=== PATIENT | female | born 1975 | race Caucasian/White ===

== ENCOUNTER 2020-01-21 18:16 | Emergency (ER) | payer MEDICARE, MEDICAID, SELFPAY ==
[2020-01-21 18:17] VITALS: BP 156/89; PULSE 56; RESP 16; TEMP 36.8; O2SAT 96; BMI 38.2
--- NOTE | 2020-01-21 18:39 | W.ED.NAVMDI ---
HPI - Nausea/Vomiting/Diarrhea General: Chief complaint: Nausea/Vomiting/Diarrhea Stated complaint: nausea, vomiting Time Seen by Provider: 01/21/20 18:27 History of Present Illness: HPI Narrative: Brionna is a very nice 44-year-old female who comes in complaining of nausea, vomiting and diarrhea. She states she felt fine yesterday but woke up at 6 AM with symptoms of abdominal cramping. Since she vomited and had diarrhea her cramping is gone. She has no blood in her stools and denies any blood in her emesis. She is had no fevers or chills. Patient states she feels okay now other than just feeling overall tired. Patient does admit she is kept her medicines down and she takes significant medicines including Depakote, tacrolimus, and prednisone. There are others but these she takes for seizure disorders as well as for a kidney transplant. She states her kidney transplant was secondary to uncontrolled high blood pressure which caused renal failure. She states since receiving her kidney she is not had any problems with high blood pressure. She denies any urinary symptoms with this illness. Associated nausea: Yes Associated symtoms: Reports nausea; Denies change in vision, chest pain, diaphoresis, dizziness, dysuria, fatigue, headache(s), malaise, palpitations or syncope Review of Systems Const: Denies: fever(s), chills, body aches, fatigue, malaise or diaphoresis Eyes: Denies: change in vision, blurry vision, blind spots or photophobia ENMT: Denies: throat pain, odynophagia, hoarseness, swelling of lips/tongue, ear or mastoid pain, ear discharge, change in hearing or nasal discharge Card: Denies: chest pain, palpitations, irregular heart rhythm, edema, lightheadedness, syncope, pre-syncope, dyspnea on exertion or orthopnea Resp: Denies: dyspnea, productive cough, non-productive cough, wheezing, hemoptysis or chest congestion GI: Reports: abdominal pain, nausea, vomiting and diarrhea; Denies: hematemesis, coffee ground emesis, heartburn, constipation, GI cramping, hematochezia or melena : Denies: flank pain, dysuria, urinary frequency, urinary urgency or hematuria Musc: Denies: neck pain, back pain, extremity pain, extremity swelling, joint pain, joint swelling, joint redness, joint warmth or joint stiffness Skin/Breast: Denies: rash, pruritus, erythema, skin tenderness or jaundice Neuro: Denies: headache(s), numbness in extremities, weakness in extremities, sensory changes, lack of coordination, difficulty walking, dizziness, vertigo, confusion or Slurred speech present Ayden/Lymph: Denies: easy bruising, easy bleeding, petechiae, purpura or enlarged lymph nodes All/Imm: Denies: urticaria, throat swelling, tongue swelling, facial swelling or acute wheezing PFSH ED PFSH: Medical History Hypertension Hypothyroidism Seizures Surgical History Kidney transplant status Social History Smoking and tobacco status: never smoked Alcohol intake: never Physical Exam Const: COMMON NORMALS: no acute distress, patient oriented x3, no limitations, healthy appearing and well nourished GENERAL APPEARANCE: cooperative, well kempt and well developed HENMT: COMMON NORMALS: normocephalic, atraumatic, external ears normal, EAC's normal and Normal external nose present HEAD & SCALP: normal to inspection, normocephalic and atraumatic FACE & SINUS: normal facial exam and face symmetric NOSE: Normal external nose present and Normal nares present EXTERNAL EAR: Yes external ears normal EXTERNAL AUDITORY CANAL: EAC's normal MOUTH: Normal oral and palatal mucosa present, lip normal and tongue normal Eye: COMMON NORMALS: Equal, round and reactive pupils present and conjunctivae normal GENERAL EYE: appearance normal, both eyes and all related structures ALIGNMENT: Yes alignment normal PERIORBITAL: periorbital findings normal EYELID: eyelids normal CONJUNCTIVA: Yes conjunctivae normal SCLERA: sclerae normal PUPIL: Yes Equal, round and reactive pupils present Neck/C-Spine: COMMON NORMALS: full ROM, no lymphadenopathy, supple, no meningeal signs and no JVD GENERAL: Yes normal visual inspection and Yes trachea midline Chest: COMMONS NORMALS: normal inspection of the chest and normal palpation of entire chest wall Resp: COMMON NORMALS: normal respiratory effort, No retractions and No use of accessory muscles EFFORT & INSPECTION: Yes able to speak in complete sentences and Yes symmetric chest movement AUSCULTATION: no crackles, no rales, no rhonchi and no wheezes Cardio: COMMON NORMALS: no JVD, regular rate, regular rhythm, S1 normal heart sound present and S2 normal heart sound present RATE: regular rate RHYTHM: regular rhythm HEART SOUNDS: S1 normal heart sound present, S2 normal heart sound present, no click, no gallops, no murmurs, no rubs and abnormal split S2 GI: COMMON NORMALS: Soft to palpation and No hepatosplenomegaly present PALPATION: Yes Soft to palpation, No Tenderness to palpation present (GI), No Guarding due to palpation present (GI), No Rigid due to palpation, Yes No hepatosplenomegaly present, No Hernia present, No Palpable mass present and No Pulsatile mass present : COMMON NORMALS: Yes no CVA tenderness BLADDER/KIDNEY EXAM: Yes no CVA tenderness EXTERNAL FEMALE EXAM: No Hernia present Back/Pelvis: COMMON NORMALS: no CVA tenderness, thoracic and lumbar spine normal to inspection, no thoracic nor lumbar tenderness and thoraco-lumbar ROM normal Extremity: COMMON NORMALS: normal to inspection, full ROM, capillary refill normal, no joint enlargement, no clubbing, cyanosis or edema and no calf tenderness Neuro: COMMON NORMALS: patient oriented x3, CN's II-XII intact bilaterally, moves all extremities, no focal motor deficits and no sensory deficits noted MENINGEAL SIGNS: Yes no meningeal signs SPEECH: speech normal Psych: COMMON NORMALS: mental status grossly normal, Normal thought process present, cooperative, normal affect, speech normal and activity/motor behavior normal APPEARANCE: Yes well kempt SPEECH: Yes normal speech THOUGHT PROCESS: Normal thought process present Skin: COMMON NORMALS: no rashes or lesions noted, turgor normal, no jaundice, no petechiae and no mottling GENERAL SKIN EXAM: no rashes or lesions noted and turgor normal Course Vital Signs: Vital signs: Vital Signs Temperature 98.3 F 01/21/20 18:17 Pulse Rate 56 L 01/21/20 18:17 Respiratory Rate 17 01/21/20 19:35 Blood Pressure 156/89 01/21/20 18:17 Pulse Oximetry 98 01/21/20 19:35 MDM - Nausea/Vomiting/Diarrhea MDM Narrative: Medical decision making narrative: Brionna is feeling much better after IV fluids and nausea medicine. She started to complain of some intermittent cramping abdominal pain. Because of her mildly increased creatinine I ordered a renal CT scan and it shows mild hydronephrosis of the transplant kidney. Otherwise there is no acute findings. Her abdominal exam is still benign without sign of peritonitis or focal irritation. I did discuss the case in full with Dr. Reich, on-call for the transplant service at the [facility]. Based upon everything he does not believe the patient needs transfer tonight. He would like the patient to go home with a copy of her CT scan as well as the report. This will need to be brought up with her and given to her regular doctor. He also agrees with me that the patient can go home but if her pain worsens or it has not completely resolved in the next 8 to 12 hours she will need to be rechecked. Patient wants to go home but at this time I see no evidence of appendicitis or other acute findings. Dr. Reich agreed no repeat CT scan would be necessary with contrast. The patient has no focal right lower quadrant abdominal pain. We want to avoid any contrast to hurt her transplant kidney. The patient's exam and history not consistent with appendicitis that she is only had cramping abdominal pain here and nothing earlier in the day. It is possible with her immunosuppressive medications though that appendicitis or other type of bowel problem can present atypically and I have informed the patient of this. She understands that she may need to return here if her pain gets worse and if it does not resolve in the next 8 to 10 hours she will need to be rechecked. She has no questions or concerns and she understands these instructions I have given them to her and she agrees to follow-up as directed or return if needed. Lab Data: Labs: Lab Results 01/21/20 01/21/20 01/21/20 Range/Units 19:13 19:25 19:25 WBC 6.3 (4.0-10.0) 10^3/ uL RBC 3.97 L (4.1-5.3) 10^6/u L Hgb 12.7 (11.5-15.3) g/dL Hct 41.1 (37.0-47.0) % MCV 103.5 H (81-99) fL MCH 32.0 (28.0-34.0) pg MCHC 30.9 (30.0-36.0) g/dL RDW 13.2 (12.1-15.1) % Plt Count 168 (130-400) 10^3/c mm MPV 11.4 H (7.4-10.4) fL Neut % (Auto) 64.8 % Lymph % (Auto) 22.5 % [place] % (Auto) 9.1 % Eos % (Auto) 2.1 % Baso % (Auto) 0.5 % Neut # (Auto) 4.1 (1.8-7.7) 10^3/u L Lymph # (Auto) 1.4 (0.8-4.8) 10^3/u L [place] # (Auto) 0.6 (0.2-0.9) 10^3/u L Eos # (Auto) 0.1 (0.0-0.8) 10^3/u L Baso # (Auto) 0.0 (0.0-0.1) 10^3/u L Nucleated RBC % (a uto) 0 % Nucleated RBCs # 0.0 /100WBC Sodium 140 (136-145) mmol/L Potassium 4.5 (3.5-5.1) mmol/L Chloride 106 (98-107) mmol/L Carbon Dioxide 24 (22-29) mmol/L Anion Gap 14.5 (5-19) BUN 30 H (6-20) mg/dL Creatinine 1.5 H (0.5-0.9) mg/dL GFR Calculation 37.4 L (90-130) mL/min Glucose 98 (65-115) mg/dL Calculated Osmolal ity 287 (285-295) mOsm/k g Lactic Acid (0.5-2.2) mmol/L Calcium 9.9 (8.5-10.5) mg/dL Magnesium 1.6 L (1.7-2.3) mg/dL Total Bilirubin 0.2 (0.15-1.2) mg/dL AST 14 (0-32) U/L ALT 15 (0-33) U/L Alkaline Phosphata se 57 (35-105) IU/L Total Protein 6.0 L (6.6-8.7) g/dL Albumin 3.8 (3.5-5.2) g/dL Globulin 2.2 (1.3-4.6) g/dL Lipase 27 (13-60) U/L Urine Color Yellow (Yellow) Urine Appearance Clear (CLEAR) Urine pH 7 (5-7) Ur Specific Gravit y 1.010 (1.005-1.030) Urine Protein Neg (Negative) Urine Glucose (UA) Norm (Normal) Urine Ketones Negative (Negative) Urine Blood Neg (Negative) Urine Nitrate Negative (Negative) Urine Bilirubin Neg (NEGATIVE) Urine Urobilinogen Neg (Negative) mg/dL Ur Leukocyte Clotilde ase Negative (Negative) Urine RBC None (0-2) /hpf Urine WBC 0-4 H (0-5) /hpf Ur Squamous Epith Cells 0-4 H (0-5) Amorphous Sediment 1+ Urine Bacteria Trace (NONE) Valproic Acid 71.2 (50-100) mcg/mL 01/21/20 Range/Units 19:40 WBC (4.0-10.0) 10^3/ uL RBC (4.1-5.3) 10^6/u L Hgb (11.5-15.3) g/dL Hct (37.0-47.0) % MCV (81-99) fL MCH (28.0-34.0) pg MCHC (30.0-36.0) g/dL RDW (12.1-15.1) % Plt Count (130-400) 10^3/c mm MPV (7.4-10.4) fL Neut % (Auto) % Lymph % (Auto) % [place] % (Auto) % Eos % (Auto) % Baso % (Auto) % Neut # (Auto) (1.8-7.7) 10^3/u L Lymph # (Auto) (0.8-4.8) 10^3/u L [place] # (Auto) (0.2-0.9) 10^3/u L Eos # (Auto) (0.0-0.8) 10^3/u L Baso # (Auto) (0.0-0.1) 10^3/u L Nucleated RBC % (a uto) % Nucleated RBCs # /100WBC Sodium (136-145) mmol/L Potassium (3.5-5.1) mmol/L Chloride (98-107) mmol/L Carbon Dioxide (22-29) mmol/L Anion Gap (5-19) BUN (6-20) mg/dL Creatinine (0.5-0.9) mg/dL GFR Calculation (90-130) mL/min Glucose (65-115) mg/dL Calculated Osmolal ity (285-295) mOsm/k g Lactic Acid 1.3 (0.5-2.2) mmol/L Calcium (8.5-10.5) mg/dL Magnesium (1.7-2.3) mg/dL Total Bilirubin (0.15-1.2) mg/dL AST (0-32) U/L ALT (0-33) U/L Alkaline Phosphata se (35-105) IU/L Total Protein (6.6-8.7) g/dL Albumin (3.5-5.2) g/dL Globulin (1.3-4.6) g/dL Lipase (13-60) U/L Urine Color (Yellow) Urine Appearance (CLEAR) Urine pH (5-7) Ur Specific Gravit y (1.005-1.030) Urine Protein (Negative) Urine Glucose (UA) (Normal) Urine Ketones (Negative) Urine Blood (Negative) Urine Nitrate (Negative) Urine Bilirubin (NEGATIVE) Urine Urobilinogen (Negative) mg/dL Ur Leukocyte Clotilde ase (Negative) Urine RBC (0-2) /hpf Urine WBC (0-5) /hpf Ur Squamous Epith Cells (0-5) Amorphous Sediment Urine Bacteria (NONE) Valproic Acid (50-100) mcg/mL EKG Data^: EKG 1: Attestation: I personally reviewed and interpreted this EKG as follows: EKG interpretation date: 01/21/20 EKG interpretation time: 19:42 Interpretation: Normal sinus rhythm at 56 beats a minute, left axis deviation, LVH, no other acute ST or T wave changes. Discharge Plan Discharge Patient Disposition: Home, Self-Care Clinical Impression: Nausea, vomiting, and diarrhea, Kidney transplant status, Dehydration Condition: Stable Prescriptions: New Zofran 4 mg tablet 4 mg PO Q6H PRN (Reason: nausea and vomiting) Qty: 20 RF: 0 No Action divalproex [Depakote] 250 mg tablet,delayed release (DR/EC) 750 mg PO BID RF: 0 prednisone 5 mg tablet 5 mg PO ONCE RF: 0 sodium bicarbonate 650 mg tablet 650 mg PO BID RF: 0 levothyroxine 75 mcg capsule 75 mcg PO ONCE RF: 0 mycophenolate sodium 360 mg tablet,delayed release (DR/EC) 720 mg PO BID RF: 0 tacrolimus 1 mg tablet extended release 24 hr 1 mg PO BID RF: 0 calcitriol 0.25 mcg capsule See Rx Instructions .ROUTE .COMPLEX RF: 0 Discharge Orders: Discharge Order (Routine); Ordered 01/21/20 Ordered By: Velvet Marie Referrals: Velvet Marie [Emergency Provider] - (Return to the ER for any worsening of your pain or if your pain does not resolve in the next 8 to 10 hours.) Discharge Diet: Advance as tolerated Discharge Activity: Increase activity as tolerated Patient Instructions: Gastroenteritis (ED), Acute Nausea and Vomiting (ED), Abdominal Pain (ED) Activity Restrictions/Additional Instructions: Please return to the ER immediately for any of the signs or symptoms listed on your discharge instruction sheets, worsening/changing of your symptoms, you are not getting better as quickly as expected, or for ANY other cause or concerns. Return to the ER if your pain worsens in any way, return to ER if your pain is not completely resolved in the next 8 to 10 hours. Be certain to call your transplant service and tell them about your visit to the ER and share with him the report on your CT scan as well as your kidney function. Coding Level of Care Code ED Java Development Team Lead for Austen Osman Exam Comprehensive
[2020-01-21] MEDS: ondansetron 2 mg/ML SDV 2 mL 4 MG IVP ×2 (19:28→19:35)
[2020-01-21] MEDS: sodium chloride 0.9% 1,000 ML 999 ML IV (19:29)
[2020-01-21 19:30] LABS: Basophils % 0.5 %; Eosinophils # 0.1 10^3/uL (0.0-0.8); Eosinophils % 2.1 %; Hematocrit 41.1 % (37.0-47.0); Hemoglobin 12.7 g/dL (11.5-15.3); Lymphocytes # 1.4 10^3/uL (0.8-4.8); Lymphocytes % 22.5 %; Mean Corpuscular HGB Conc 30.9 g/dL (30.0-36.0); Mean Corpuscular Volume 103.5 fL (81-99); Mean Platelet Volume 11.4 fL (7.4-10.4); Monocytes # 0.6 10^3/uL (0.2-0.9); Monocytes % 9.1 %; Neutrophils # 4.1 10^3/uL (1.8-7.7); Neutrophils % 64.8 %; Nucleated Red Blood Cells % 0 %; Platelet Count 168 10^3/cmm (130-400); Red Blood Count 3.97 10^6/uL (4.1-5.3); Red Cell Distribution Width 13.2 % (12.1-15.1); White Blood Count 6.3 10^3/uL (4.0-10.0)
[2020-01-21 19:32] LABS: Bilirubin Urine Neg (NEGATIVE); Blood Urine Neg (Negative); Glucose Urine UA Norm (Normal); Ketones Urine Negative (Negative); Leukocyte Esterase Urine Negative (Negative); Nitrate Urine Negative (Negative); Protein Urine Neg (Negative); Urine Appearance Clear (CLEAR); Urine Color Yellow (Yellow); Urobilinogen Urine Neg (Negative); pH Urine 7 (5-7)
[2020-01-21 19:33] LABS: Add Urine Culture? No; Amorphous Sediment Urine 1+; Bacteria Urine TRACE; Squamous Epithelial Cell Urine 0-4 (0-5); WBC Urine 0-4 /hpf (0-5)
[2020-01-21 19:35] VITALS: RESP 17; O2SAT 98
[2020-01-21] MEDS: morphine 4 mg/mL SDV 1 mL IVP (19:35)
[2020-01-21] MEDS: sodium chloride 0.9% 1,000 ML 100 ML IV (19:41)
[2020-01-21 20:02] LABS: Alanine Aminotransferase 15 U/L (0-33); Albumin Level 3.8 g/dL (3.5-5.2); Alkaline Phosphatase 57 IU/L (35-105); Anion Gap 14.5 (5-19); Aspartate Amino Transferase 14 U/L (0-32); Blood Urea Nitrogen 30 mg/dL (6-20); Calcium 9.9 mg/dL (8.5-10.5); Carbon Dioxide 24 mmol/L (22-29); Chloride 106 mmol/L (98-107); Globulin 2.2 g/dL (1.3-4.6); Glomerular Filtration Rate 37.4 mL/min (90-130); Glucose 98 mg/dL (65-115); Lipase 27 U/L (13-60); Magnesium 1.6 mg/dL (1.7-2.3); Osmolality Calculated 287 mOsm/kg (285-295); Potassium 4.5 mmol/L (3.5-5.1); Sodium 140 mmol/L (136-145); Total Bilirubin 0.2 mg/dL (0.15-1.2); Valproic Acid Level 71.2 mcg/mL (50-100)
--- NOTE | 2020-01-21 20:10 | CTR_ITS ---
PROCEDURE INFORMATION: Exam: CT Abdomen And Pelvis Without Contrast Exam date and time: 01/21/2020 8:13 PM Age: 44 years old Clinical indication: Nausea and vomiting and other: Diarrhea; Abdominal pain; Localized; Left lower quadrant (llq); Prior surgery; Surgery type: ; Additional info: Flank/abdominal pain TECHNIQUE: Imaging protocol: Computed tomography of the abdomen and pelvis without contrast. Radiation optimization: All CT scans at this facility use at least one of these dose optimization techniques: automated exposure control; mA and/or kV adjustment per patient size (includes targeted exams where dose is matched to clinical indication); or iterative reconstruction. COMPARISON: No relevant prior studies available. RADIATION DOSE METRICS: Total DLP: 1874.89 mGy-cm FINDINGS: Liver: Normal. No mass. Gallbladder and bile ducts: Normal. No calcified stones. No ductal dilation. Pancreas: Normal. No ductal dilation. Spleen: Normal. No splenomegaly. Adrenals: Normal. No mass. Kidneys and ureters: Severe bilateral renal atrophy. Renal transplant in the left pelvis. Borderline to mild left renal transplant hydronephrosis with no obvious dilated transplant ureter. Stomach and bowel: Unremarkable. No obstruction. No mucosal thickening. Appendix: No evidence of appendicitis. Intraperitoneal space: Unremarkable. No free air. No significant fluid collection. Vasculature: Calcification of the abdominal aorta and/or iliac arteries consistent with atherosclerotic vessel disease. Right common femoral and common femoral vein grafts which were possible used for artificial AV fistula for hemodialysis. Lymph nodes: Unremarkable. No enlarged lymph nodes. Bladder: Unremarkable as visualized. Reproductive: Status post hysterectomy. Bones/joints: Unremarkable. No acute fracture. Soft tissues: Unremarkable. CT/CT kidney stone 87944 IMPRESSION: 1. Renal transplant in the left pelvis. 2. Borderline to mild left renal transplant hydronephrosis with no obvious dilated transplant ureter. Radiation Dose CTDIVOL = (mGy): DLP = 1874.89 (mGy-cm)
[2020-01-21 20:14] LABS: Lactic Sepsis W/Reflex 1.3 mmol/L (0.5-2.2)
[2020-01-21 21:53] VITALS: BP 170/83; PULSE 58; RESP 18; O2SAT 94
== END 2020-01-21 21:55 | disposition home or self-care (01) ==
PROVIDERS: Emergency Provider Emergency Medicine
DX: R11.2 Nausea with vomiting, unspecified (principal); R19.7 Diarrhea, unspecified; E86.0 Dehydration; Z94.0 Kidney transplant status; I10 Essential (primary) hypertension
CPT/HCPCS: 12345; 36415; 74176; 80053; 80164; 81001; 83605; 83690; 83735; 85025; 96361; 96374; 96375; 96376; 99283; J2270; J2405; J7030

== ENCOUNTER 2020-01-29 08:11 | Outpatient (CLI) | payer MEDICARE, MEDICAID, SELFPAY ==
[2020-01-29 09:03] LABS: Basophils % 0.6 %; Eosinophils # 0.2 10^3/uL (0.0-0.8); Eosinophils % 2.1 %; Hematocrit 42.8 % (37.0-47.0); Hemoglobin 13.8 g/dL (11.5-15.3); Lymphocytes # 1.4 10^3/uL (0.8-4.8); Lymphocytes % 20.2 %; Mean Corpuscular HGB Conc 32.2 g/dL (30.0-36.0); Mean Corpuscular Hemoglobin 32.4 pg (28.0-34.0); Mean Corpuscular Volume 100.5 fL (81-99); Mean Platelet Volume 11.3 fL (7.4-10.4); Monocytes # 0.5 10^3/uL (0.2-0.9); Monocytes % 7.5 %; Neutrophils # 4.8 10^3/uL (1.8-7.7); Nucleated Red Blood Cells % 0 %; Platelet Count 189 10^3/cmm (130-400); Red Blood Count 4.26 10^6/uL (4.1-5.3); Red Cell Distribution Width 13.2 % (12.1-15.1); White Blood Count 7.1 10^3/uL (4.0-10.0)
[2020-01-29 09:21] LABS: Alanine Aminotransferase 16 U/L (0-33); Albumin Level 4.5 g/dL (3.5-5.2); Alkaline Phosphatase 70 IU/L (35-105); Anion Gap 18.5 (5-19); Aspartate Amino Transferase 15 U/L (0-32); Blood Urea Nitrogen 37 mg/dL (6-20); Calcium 11.1 mg/dL (8.5-10.5); Carbon Dioxide 24 mmol/L (22-29); Chloride 104 mmol/L (98-107); Globulin 2.5 g/dL (1.3-4.6); Glomerular Filtration Rate 48.4 mL/min (90-130); Glucose 109 mg/dL (65-115); Magnesium 2.1 mg/dL (1.7-2.3); Osmolality Calculated 292 mOsm/kg (285-295); Phosphorus 2.5 mg/dL (2.5-4.5); Potassium 4.5 mmol/L (3.5-5.1); Sodium 142 mmol/L (136-145); Total Bilirubin 0.3 mg/dL (0.15-1.2)
[2020-01-29 09:46] LABS: Calcium 10.9 mg/dL (8.5-10.5); Parathyroid Hormone 291.5 pg/mL (15-65)
== END 2020-01-29 08:12 | disposition home or self-care (01) ==
PROVIDERS: Visit Provider Internal Medicine Nephrology
DX: Z94.0 Kidney transplant status (principal)
CPT/HCPCS: 36415; 80053; 80197; 82310; 83735; 83970; 84100; 85025

== ENCOUNTER 2020-01-30 09:56 | Outpatient (CLI) | payer MEDICARE, MEDICAID, SELFPAY ==
[2020-01-30 10:32] LABS: Urine Creatinine 61 mg/dL (28-217); Urine Protein Random 4 mg/dL
[2020-01-30 10:45] LABS: UPRO/UCREAT Ratio 0.07 mg/mg CR
== END 2020-01-30 09:57 | disposition home or self-care (01) ==
LOC: LAB 10:00
PROVIDERS: Visit Provider Internal Medicine Nephrology
DX: Z94.0 Kidney transplant status (principal)
CPT/HCPCS: 82570; 84156

== ENCOUNTER 2020-03-10 15:32 | Emergency (ER) | payer MEDICARE, MEDICAID, SELFPAY ==
[2020-03-10 15:34] VITALS: BP 145/105; PULSE 73; RESP 18; TEMP 36.7; O2SAT 95; BMI 38.4
--- NOTE | 2020-03-10 16:28 | ECG_ITS ---
[facility] Test Date: 2020-03-10 Pat Name: Brionna Mccallum Department: Room: Gender: Female Questioned Documents Examiner: : 1975 Requested By: Bill Swenson Order Number: [id number] Gamal MD: Mayela Saxena M.D. Measurements Intervals [place] Rate: 79 P: 23 [place]: 171 QRS: -20 QRSD: 102 T: 35 QT: 350 QTc: 403 Interpretive Statements SINUS RHYTHM WITH FREQUENT SUPRAVENTRICULAR PREMATURE COMPLEXES LEFT VENTRICULAR HYPERTROPHY AND ST-T CHANGE POSSIBLE ANTERIOR MYOCARDIAL INFARCTION,PROBABLY OLD Compared to ECG 05/13/2019 17:06:15 Left ventricular hypertrophy now present ST (T wave) deviation now present Myocardial infarct finding now present Sinus bradycardia no longer present Electronically Signed On 03-10-2020 21:20:28 CDT by Mayela Saxena M.D. [email or web address]
[2020-03-10 18:15] LABS: Basophils % 0.5 %; Eosinophils # 0.1 10^3/uL (0.0-0.8); Eosinophils % 1.6 %; Hemoglobin 14.5 g/dL (11.5-15.3); Lymphocytes # 1.9 10^3/uL (0.8-4.8); Lymphocytes % 23.6 %; Mean Corpuscular HGB Conc 32.2 g/dL (30.0-36.0); Mean Corpuscular Hemoglobin 32.2 pg (28.0-34.0); Mean Corpuscular Volume 99.8 fL (81-99); Mean Platelet Volume 10.8 fL (7.4-10.4); Monocytes # 0.7 10^3/uL (0.2-0.9); Monocytes % 8.7 %; Neutrophils # 5.27 10^3/uL (1.8-7.7); Neutrophils % 64.9 %; Nucleated Red Blood Cells % 0 %; Platelet Count 219 10^3/cmm (130-400); Red Blood Count 4.51 10^6/uL (4.1-5.3); Red Cell Distribution Width 13.3 % (12.1-15.1); White Blood Count 8.1 10^3/uL (4.0-10.0)
[2020-03-10 18:25] LABS: Troponin(5th) Baseline 7 ng/L (0-10)
--- NOTE | 2020-03-10 18:34 | XRR_ITS ---
PROCEDURE INFORMATION: Exam: XR Chest, 1 View Exam date and time: 03/10/2020 6:45 PM Age: 44 years old Clinical indication: Type not specified; Patient HX: C/O chest pain x today; Swelling feet and ankles TECHNIQUE: Imaging protocol: XR of the chest Views: Frontal portable upright view of the chest. COMPARISON: CR Chest 1 [place] [id number] 05/13/2019 4:26 PM FINDINGS: Lungs: The lungs are clear bilaterally. The pulmonary vasculature is normal. Pleural space: No pleural effusion. No pneumothorax. Heart/Mediastinum: The heart is normal in size and contour. Mediastinum: Stable. Bones/joints: Degenerative disk disease is present at mid-thoracic spine disk levels with vertebral body marginal osteophytes. XR/XR chest 1V portable [id number] IMPRESSION: No acute cardiopulmonary abnormality identified.
--- NOTE | 2020-03-10 18:47 | W.ED.CHESTPA ---
HPI - Chest Pain General: Chief Complaint: Chest Pain Stated Complaint: swelling Time Seen by Provider: 03/10/20 16:28 Source: patient Mode of arrival: ambulatory Limitations: no limitations History of Present Illness: HPI narrative: Patient is a 44-year-old female who presents to ED today after she was seen at urgent care and referred here for complaints of chest pain. Patient tells me her chest pain began yesterday. She complains of swelling to her bilateral lower extremities. Patient tells me she is supposed to be taking Lasix however has not been taking this medication because she does not like the side effect of urinary frequency. Patient tells me chest pain is not accompanied with shortness of breath or difficulty breathing. She does not complain of orthopnea or PND. She states chest pain is not exertional or positional. She has not been running any fevers or chills. She has no previous cardiac history other than skipped beats . She does not see a cabinet professional. MD complaint: chest pain Onset (ago): hour(s) (started yesterday) Timing of current episode: constant Prior episodes: No Onset: during rest Pain location: substernal Pain radiation: none Severity: mild Relieving factors: nothing Exacerbating factors: nothing Associated symptoms: Deny abdominal pain, dyspnea, fever(s), nausea, palpitations, syncope or vomiting Review of Systems Const: Denies: fever(s) or chills Eyes: Denies: change in vision, blurry vision, floaters or seeing flashes Card: Reports: chest pain and swelling of feet/ankles; Denies: palpitations, irregular heart rhythm, lightheadedness, syncope, pre-syncope, dyspnea on exertion, orthopnea, leg pain with exertion or acrocyanosis Resp: Denies: dyspnea, productive cough, non-productive cough, pain on inspiration or chest congestion GI: Denies: abdominal pain, nausea or vomiting : Denies: flank pain or dysuria Musc: Denies: neck pain, back pain, extremity pain, extremity swelling, joint pain or joint swelling Neuro: Denies: headache(s), numbness in extremities, weakness in extremities or sensory changes [facility] ED PFSH: Medical History (Updated 03/10/20 @ 20:09 by PILI Calderon) Hypertension Hypothyroidism Seizures Surgical History (Updated 01/21/20 @ 21:41 by Velvet Marie) Kidney transplant status Social History Smoking and tobacco status: never smoked Alcohol intake: never Physical Exam Const: COMMON NORMALS: no acute distress, patient oriented x3, no limitations and alert ORIENTATION/CONSCIOUSNESS: Yes oriented to person, Yes oriented to place and Yes oriented to time Resp: COMMON NORMALS: normal respiratory effort and clear to auscultation bilaterally AUSCULTATION: clear to auscultation bilaterally Cardio: COMMON NORMALS: regular rate and regular rhythm RATE: regular rate RHYTHM: regular rhythm GI: COMMON NORMALS: Normal to inspection, nondistended, normoactive bowel sounds present, Soft to palpation, non-tender, No hepatosplenomegaly present and no masses PALPATION: Yes Soft to palpation and Yes No hepatosplenomegaly present Extremity: COMMON NORMALS: normal to inspection NARRATIVE EXTREMITY EXAM: very mild bilateral non-pitting edema GENERAL: Yes normal exam except as noted Neuro: COMMON NORMALS: patient oriented x3 SENSORIUM/ORIENTATION: Yes alert, Yes oriented to person, Yes oriented to place and Yes oriented to time Skin: COMMON NORMALS: no rashes or lesions noted GENERAL SKIN EXAM: no rashes or lesions noted Course Vital Signs: Vital signs: Vital Signs Temperature 98.1 F 03/10/20 15:34 Pulse Rate 60 03/10/20 19:16 Respiratory Rate 18 03/10/20 19:16 Blood Pressure 128/85 03/10/20 19:16 Pulse Oximetry 96 03/10/20 19:16 MDM - Chest Pain MDM Narrative: Medical decision making narrative: Upon reexamination patient no longer having chest pain. Again she is supposed to be taking her Lasix but has not. We will go ahead and start her on a low-dose of Lasix for her swelling. BNP was mildly elevated at 234. CXR not showing fluid overload or cardiomegaly. Patient's initial and repeat troponins are normal. EKG showing sinus rhythm with frequent ectopic beats. She has no ischemic changes noted. We will go ahead and set patient up with cardiology follow-up. Pts BUN/Cr mildly elevated but these seem to be at her baseline. Remainder of labs non-concerning. Return to ED precautions given. Lab Data: Labs: Lab Results 03/10/20 03/10/20 03/10/20 Range/Units 18:01 18:01 18:01 WBC 8.1 (4.0-10.0) 10^3/ uL RBC 4.51 (4.1-5.3) 10^6/u L Hgb 14.5 (11.5-15.3) g/dL Hct 45.0 (37.0-47.0) % MCV 99.8 H (81-99) fL MCH 32.2 (28.0-34.0) pg MCHC 32.2 (30.0-36.0) g/dL RDW 13.3 (12.1-15.1) % Plt Count 219 (130-400) 10^3/c mm MPV 10.8 H (7.4-10.4) fL Neut % (Auto) 64.9 % Lymph % (Auto) 23.6 % [place] % (Auto) 8.7 % Eos % (Auto) 1.6 % Baso % (Auto) 0.5 % Neut # (Auto) 5.27 (1.8-7.7) 10^3/u L Lymph # (Auto) 1.9 (0.8-4.8) 10^3/u L [place] # (Auto) 0.7 (0.2-0.9) 10^3/u L Eos # (Auto) 0.1 (0.0-0.8) 10^3/u L Baso # (Auto) 0.0 (0.0-0.1) 10^3/u L Nucleated RBC % (a uto) 0 % Nucleated RBCs # 0.0 /100WBC Sodium 142 (136-145) mmol/L Potassium 4.5 (3.5-5.1) mmol/L Chloride 104 (98-107) mmol/L Carbon Dioxide 22 (22-29) mmol/L Anion Gap 20.5 H (5-19) BUN 33 H (6-20) mg/dL Creatinine 1.2 H (0.5-0.9) mg/dL GFR Calculation 48.4 L (90-130) mL/min Glucose 85 (65-115) mg/dL Calculated Osmolal ity 291 (285-295) mOsm/k g Calcium 11.5 H (8.5-10.5) mg/dL Total Bilirubin 0.2 (0.15-1.2) mg/dL AST 15 (0-32) U/L ALT 12 (0-33) U/L Alkaline Phosphata se 63 (35-105) IU/L Troponin T Baselin e 7 (0-10) ng/L Troponin T 120 Min nenana (0-10) ng/L Delta Troponin T (0-10) ABS# NT-Pro-B Natriuret Pep (0-125) pg/mL Total Protein 7.2 (6.6-8.7) g/dL Albumin 4.7 (3.5-5.2) g/dL Globulin 2.5 (1.3-4.6) g/dL Ethyl Alcohol < 10 (0-10) mg/dL 03/10/20 03/10/20 Range/Units 18:33 18:33 WBC (4.0-10.0) 10^3/ uL RBC (4.1-5.3) 10^6/u L Hgb (11.5-15.3) g/dL Hct (37.0-47.0) % MCV (81-99) fL MCH (28.0-34.0) pg MCHC (30.0-36.0) g/dL RDW (12.1-15.1) % Plt Count (130-400) 10^3/c mm MPV (7.4-10.4) fL Neut % (Auto) % Lymph % (Auto) % [place] % (Auto) % Eos % (Auto) % Baso % (Auto) % Neut # (Auto) (1.8-7.7) 10^3/u L Lymph # (Auto) (0.8-4.8) 10^3/u L [place] # (Auto) (0.2-0.9) 10^3/u L Eos # (Auto) (0.0-0.8) 10^3/u L Baso # (Auto) (0.0-0.1) 10^3/u L Nucleated RBC % (a uto) % Nucleated RBCs # /100WBC Sodium (136-145) mmol/L Potassium (3.5-5.1) mmol/L Chloride (98-107) mmol/L Carbon Dioxide (22-29) mmol/L Anion Gap (5-19) BUN (6-20) mg/dL Creatinine (0.5-0.9) mg/dL GFR Calculation (90-130) mL/min Glucose (65-115) mg/dL Calculated Osmolal ity (285-295) mOsm/k g Calcium (8.5-10.5) mg/dL Total Bilirubin (0.15-1.2) mg/dL AST (0-32) U/L ALT (0-33) U/L Alkaline Phosphata se (35-105) IU/L Troponin T Baselin e (0-10) ng/L Troponin T 120 Min n[place] 7.04 (0-10) ng/L Delta Troponin T 0.04 (0-10) ABS# NT-Pro-B Natriuret Pep 234 H (0-125) pg/mL Total Protein (6.6-8.7) g/dL Albumin (3.5-5.2) g/dL Globulin (1.3-4.6) g/dL Ethyl Alcohol (0-10) mg/dL Imaging Data^: CXR: My impression: NAD Discharge Plan Discharge Patient Disposition: Home Clinical Impression: Non-cardiac chest pain, Edema of lower extremity Condition: Stable Prescriptions: New Lasix 20 mg tablet 10 mg PO DAILY Qty: 30 RF: 0 No Action divalproex [Depakote] 250 mg tablet,delayed release (DR/EC) 750 mg PO BID RF: 0 prednisone 5 mg tablet 5 mg PO DAILY RF: 0 sodium bicarbonate 650 mg tablet 650 mg PO BID RF: 0 levothyroxine 75 mcg capsule 75 mcg PO ONCE RF: 0 mycophenolate sodium 360 mg tablet,delayed release (DR/EC) 720 mg PO BID RF: 0 tacrolimus 1 mg tablet extended release 24 hr 1 mg PO BID RF: 0 calcitriol 0.25 mcg capsule See Rx Instructions .ROUTE .COMPLEX RF: 0 potassium, sodium phosphates [Phosphorous Supplement] 280-160-250 mg Powder In Packet 1 packet PO BID RF: 0 Discharge Orders: Discharge Order (Routine); Ordered 03/10/20 Ordered By: Yadira Melendez Activity Restrictions/Additional Instructions: Please follow-up with your primary care provider this week or early next week for reevaluation. Case management should be contacting you to set you up with a cardiology follow-up regarding your chest pain and lower extremity swelling. Return to the emergency department for any worsening swelling, chest pains, shortness of breath, difficulty breathing, fevers, any other concerns you may have. Coding Level of Care Code ED Mobile Equipment Mechanic for Chg Fwd Exam Detailed
[2020-03-10 18:50] LABS: Alanine Aminotransferase 12 U/L (0-33); Albumin Level 4.7 g/dL (3.5-5.2); Alkaline Phosphatase 63 IU/L (35-105); Anion Gap 20.5 (5-19); Aspartate Amino Transferase 15 U/L (0-32); Blood Urea Nitrogen 33 mg/dL (6-20); Calcium 11.5 mg/dL (8.5-10.5); Carbon Dioxide 22 mmol/L (22-29); Chloride 104 mmol/L (98-107); Globulin 2.5 g/dL (1.3-4.6); Glomerular Filtration Rate 48.4 mL/min (90-130); Glucose 85 mg/dL (65-115); Osmolality Calculated 291 mOsm/kg (285-295); Potassium 4.5 mmol/L (3.5-5.1); Sodium 142 mmol/L (136-145); Total Bilirubin 0.2 mg/dL (0.15-1.2); Total Protein 7.2 g/dL (6.6-8.7)
[2020-03-10 18:58] LABS: Alcohol Level < 10 mg/dL (0-10)
[2020-03-10 19:16] VITALS: BP 128/85; PULSE 60; RESP 18; O2SAT 96
[2020-03-10 19:18] LABS: Troponin 5 2HR 7.04 ng/L (0-10); Troponin 5 2HR Delta 0.04 ABS# (0-10)
[2020-03-10 19:59] LABS: NT Pro B Type Natriuretic Pept 234 pg/mL (0-125)
[2020-03-10 20:20] VITALS: BP 109/69; PULSE 62; RESP 18; O2SAT 96
--- NOTE | 2020-03-11 08:41 | PC.SOCIAL ---
ED Referral for Cardiology called to [facility] and scheduled for Mar 18, 2020 at 9:15am. Patient contacted by this nurse and wrote down information along with phone number. No other questions voiced. Dr Saxena is the provider.
--- NOTE | 2020-03-20 14:49 | DCPLANNER ---
Patient had a follow up appointment scheduled for 03.18.20 with [facility]. Patient did not attend the appointment.
== END 2020-03-10 20:22 | disposition home or self-care (01) ==
PROVIDERS: Family Medicine; Emergency Provider Physician Assistant
DX: R07.89 Other chest pain (principal); R60.0 Localized edema; I10 Essential (primary) hypertension; Z94.0 Kidney transplant status
CPT/HCPCS: 12345; 36415; 71045; 80053; 80307; 83880; 84484; 85025; 93005; 99283

== ENCOUNTER 2021-03-12 01:29 | Emergency (ER) | payer MEDICARE, MEDICAID, SELFPAY ==
[2021-03-12 02:18] VITALS: BP 126/89; PULSE 95; RESP 16; TEMP 36.7; O2SAT 95; BMI 38.2
[2021-03-12 05:15] VITALS: BP 114/80; PULSE 67; RESP 18; O2SAT 98
[2021-03-12] MEDS: lidocaine 1% INJ 20 mL INJECTION (05:34)
[2021-03-12] MEDS: HYDROcodone-acetaminophen 5-325 mg Tablet 1 TAB PO (05:34)
--- NOTE | 2021-03-12 05:42 | ED_ITS ---
HPI - General Adult General: Chief complaint: General Medical Stated complaint: CYST ON LEG Time Seen by Provider: 03/12/21 05:15 Source: patient Mode of arrival: ambulatory Limitations: no limitations History of Present Illness: HPI narrative: 45-year-old female came in by EMS states she has an abscess to her left inner thigh. She states that ruptured at home and had a large amount of drainage. States she had low-grade fevers. Denies any vomiting or diarrhea. Denies any worsening improving factors. Associated symptoms: Deny chest pain, dyspnea, headache(s), nausea, rash or vomiting Review of Systems Const: Denies: fever(s), chills, body aches or change in appetite Eyes: Denies: blurry vision or eye discomfort ENMT: Denies: throat pain or dental pain Card: Denies: chest pain Resp: Denies: dyspnea GI: Denies: abdominal pain, nausea, vomiting or diarrhea : Denies: dysuria Musc: Denies: neck pain or back pain Skin/Breast: Denies: rash Neuro: Denies: headache(s) Psych: Denies: depression [place]/Lymph: Denies: easy bruising All/Imm: Denies: urticaria PFSH ED PFSH: Medical History Hypertension Hypothyroidism Seizures Surgical History Kidney transplant status Social History Smoking and tobacco status: never smoked Alcohol intake: never Physical Exam Const: COMMON NORMALS: no acute distress, patient oriented x3 and healthy appearing HENMT: COMMON NORMALS: normocephalic and atraumatic HEAD & SCALP: normocephalic and atraumatic Eye: COMMON NORMALS: Equal, round and reactive pupils present and EOMs intact bilaterally PUPIL: Yes Equal, round and reactive pupils present Neck/C-Spine: COMMON NORMALS: full ROM and supple Chest: COMMONS NORMALS: normal inspection of the chest and normal palpation of entire chest wall Resp: COMMON NORMALS: normal respiratory effort, No retractions, No use of accessory muscles and clear to auscultation bilaterally AUSCULTATION: clear to auscultation bilaterally Cardio: COMMON NORMALS: regular rate, regular rhythm and No murmurs present (Cardio) RATE: regular rate RHYTHM: regular rhythm GI: COMMON NORMALS: Normal to inspection, nondistended, normoactive bowel s ounds present, Soft to palpation, non-tender and no masses PALPATION: Yes Soft to palpation Extremity: COMMON NORMALS: normal to inspection and full ROM Neuro: COMMON NORMALS: patient oriented x3, moves all extremities and no focal motor deficits Psych: COMMON NORMALS: mental status grossly normal, Normal thought process present and cooperative THOUGHT PROCESS: Normal thought process present Skin: COMMON NORMALS: no rashes or lesions noted and no wounds NARRATIVE SKIN EXAM: 2 cm abscess to left inner thigh slight surrounding cellulitis. Does have 2 large openings with purulent drainage GENERAL SKIN EXAM: no rashes or lesions noted Course Vital Signs: Vital signs: Vital Signs Temperature 98.1 F 03/12/21 02:18 Pulse Rate 67 03/12/21 05:15 Respiratory Rate 18 03/12/21 05:15 Blood Pressure 114/80 03/12/21 05:15 Pulse Oximetry 98 03/12/21 05:15 MDM - General Adult MDM Narrative: Medical decision making narrative: Patient presents with an abscess. It had ruptured at home does have 2 large holes that are draining. I further incised that. Minimal cellulitis. No signs of sepsis we will place her on Bactrim she is to follow-up PCP and return if worsening. Discharge Plan Discharge Patient Disposition: Home Clinical Impression: Abscess Condition: Stable Prescriptions: New Bactrim DS 800-160 mg tablet 1 tab PO BID 10 Days Qty: 20 RF: 0 hydrocodone-acetaminophen 5-325 mg tablet 1 tab PO Q6H PRN (Reason: pain) Qty: 14 RF: 0 No Action prednisone 5 mg tablet 5 mg PO DAILY RF: 0 sodium bicarbonate 650 mg tablet 650 mg PO BID RF: 0 levothyroxine 75 mcg capsule 75 mcg PO ONCE RF: 0 mycophenolate sodium 360 mg tablet,delayed release (DR/EC) 720 mg PO BID RF: 0 tacrolimus 1 mg tablet extended release 24 hr 1 mg PO BID RF: 0 divalproex [Depakote] 250 mg tablet,delayed release (DR/EC) 750 mg PO BID Qty: 180 RF: 0 calcitriol 0.25 mcg capsule See Rx Instructions .ROUTE .COMPLEX RF: 0 potassium, sodium phosphates [Phosphorous Supplement] 280-160-250 mg Powder In Packet 1 packet PO BID RF: 0 Lasix 20 mg tablet 10 mg PO DAILY Qty: 30 RF: 0 Discharge Orders: Discharge ED (Routine); Ordered 03/12/21 Ordered By: Cary Landeros Referrals: Sari Dover FNP [Primary Care Provider] - Discharge Diet: Advance as tolerated Discharge Activity: Resume usual activity Patient Instructions: Abscess (ED), Opioid Safety Coding Level of Care Code ED Residential Living Assistant for Austen Osman
== END 2021-03-12 06:13 | disposition home or self-care (01) ==
PROVIDERS: Emergency Provider Emergency Medicine; PCP Nurse Practitioner Family
DX: L02.416 Cutaneous abscess of left lower limb (principal); E03.9 Hypothyroidism, unspecified; I10 Essential (primary) hypertension
CPT/HCPCS: 99283

== ENCOUNTER → 2021-07-07 10:56 | Outpatient (BNVA) | payer MEDICARE, MEDICAID, SELFPAY | PROVIDERS: PCP Nurse Practitioner Family; Visit Provider Specialist | DX: G40.909 Epilepsy, unspecified, not intractable, without status epilepticus (principal); G40.309 Generalized idiopathic epilepsy and epileptic syndromes, not intractable, without status epilepticus; I10 Essential (primary) hypertension; Z94.0 Kidney transplant status | CPT/HCPCS: 99204 ==

== ENCOUNTER → 2021-12-29 08:07 | Outpatient (BNVA) | payer MEDICARE, MEDICAID, SELFPAY | PROVIDERS: PCP Nurse Practitioner Family; Visit Provider Family Medicine Adult Medicine | DX: M23.92 Unspecified internal derangement of left knee (principal) | CPT/HCPCS: 73560 ==

== ENCOUNTER → 2022-03-22 13:42 | Outpatient (BNVA) | payer MEDICARE, MEDICAID, SELFPAY | PROVIDERS: PCP Nurse Practitioner Family; Referring Provider Family Medicine Adult Medicine; Visit Provider Specialist | DX: M23.92 Unspecified internal derangement of left knee (principal); M25.562 Pain in left knee; G89.29 Other chronic pain; M89.9 Disorder of bone, unspecified | CPT/HCPCS: 73560; 73565; 99204 ==

== ENCOUNTER 2022-04-01 07:40 | Outpatient (CLI) | payer MEDICARE, MEDICAID, SELFPAY ==
--- NOTE | 2022-04-01 08:00 | MR_ITS ---
WS: [id number] MRI LEFT KNEE NONCONTRAST TECHNIQUE: Axial PD, coronal PD fat sat, coronal PD, sagittal PD, and sagittal PD fat-sat images obta ined. CLINICAL INFORMATION: left knee pain COMPARISON: Radiograph 03/22/22 FINDINGS: Distal quadriceps and patella tendons are intact. Small suprapatellar effusion. Normal ACL and PCL. S mall joint effusion. Prepatellar and infrapatellar soft tissue edema. Chronic thinning of the medial lateral meniscus worse involving the medial joint compartment. No acute appearing meniscal tears. 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 Grade III chondromalacia pat mya. Normal medial and lateral patellar retinaculum. Normal popliteal fossa. Soft tissue edema along the joint line. Normal medial and lateral collateral ligaments. 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 Associated subchondral cystic change with edema. Small amount of edema in the adjacent lateral tibial plateau. Chronic appearing small medullary infarcts involving the distal femur and proximal tibia. MR/MR knee LT wo con* [id number] IMPRESSION: 1. Normal ACL and PCL. 2. 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 Associated edema in the lateral femora l condyle and adjacent lateral tibial plateau. 3. Normal ACL and PCL. 4. 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 5. Suspected small chronic bony infarcts involving the distal femur and proxim al tibia. 6. Small joint effusion. Outbridge grading: grade IV: full-thickness cartilage loss with underlying bone reactive changes
== END 2022-04-01 07:41 | disposition home or self-care (01) ==
LOC: RAD 07:42
PROVIDERS: PCP Nurse Practitioner Family; Visit Provider Specialist
DX: M25.462 Effusion, left knee (principal); M17.12 Unilateral primary osteoarthritis, left knee; R60.0 Localized edema; M22.42 Chondromalacia patellae, left knee
CPT/HCPCS: 73721

== ENCOUNTER 2022-08-22 16:47 | Emergency (ER) | payer MEDICARE, MEDICAID, SELFPAY ==
[2022-08-22 17:21] VITALS: BP 150/89; PULSE 62; RESP 16; TEMP 36.6; O2SAT 99
[2022-08-22 19:07] VITALS: BP 158/80; PULSE 53; RESP 16; O2SAT 100
[2022-08-22] MEDS: FUROsemide 10 mg/mL SDV 10mL 60 MG IVP (19:35)
[2022-08-22 19:42] LABS: Basophils % 0.4 %; Eosinophils # 0.1 10^3/uL (0.0-0.8); Eosinophils % 1.4 %; Hematocrit 39.1 % (37.0-47.0); Hemoglobin 12.4 g/dL (11.5-15.3); Lymphocytes % 27.1 %; Mean Corpuscular HGB Conc 31.7 g/dL (30.0-36.0); Mean Corpuscular Hemoglobin 33.8 pg (28.0-34.0); Mean Corpuscular Volume 106.5 fl (81-99); Mean Platelet Volume 11.5 fL (7.4-10.4); Monocytes # 0.8 10^3/uL (0.2-0.9); Monocytes % 11.3 %; Neutrophils # 4.23 10^3/uL (1.8-7.7); Neutrophils % 58.3 %; Nucleated Red Blood Cells % 0.3 %; Platelet Count 167 10^3/cmm (130-400); Red Blood Count 3.67 10^6/uL (4.1-5.3); Red Cell Distribution Width 13.8 % (12.1-15.1); White Blood Count 7.3 10^3/uL (4.0-10.0)
[2022-08-22 19:45] LABS: Add Urine Microscopic? NO; Charge for UA Resulting for Rev
[2022-08-22 19:54] LABS: Bilirubin Urine Neg (Negative); Blood Urine Neg (Negative); Glucose Urine UA Norm (Normal); HCG Qualitative Urine. Negative (Negative); Ketones Urine Negative (Negative); Leukocyte Esterase Urine Negative (Negative); Nitrate Urine Negative (Negative); Protein Urine Neg (Negative); Urine Appearance Clear (CLEAR); Urine Color Yellow (Yellow); Urobilinogen Urine Norm (Negative); pH Urine 6 (5-7)
[2022-08-22 20:15] LABS: Alanine Aminotransferase 13 U/L (0-33); Albumin Level 3.6 g/dL (3.5-5.2); Alkaline Phosphatase 68 U/L (35-105); Aspartate Amino Transferase 12 U/L (0-32); Blood Urea Nitrogen 37 mg/dL (6-20); Calcium 10.7 mg/dL (8.5-10.5); Carbon Dioxide 23 mmol/L (22-29); Chloride 104 mmol/L (98-107); Globulin 2.7 g/dL (1.3-4.6); Glucose 95 mg/dL (65-115); NT Pro B Type Natriuretic Pept 557 pg/mL (0-125); Osmolality Calculated 286 mOsm/kg (285-295); Sodium 134 mmol/L (136-145); Total Bilirubin 0.2 mg/dL (0.15-1.2); Total Protein 6.3 g/dL (6.6-8.7)
[2022-08-22 21:11] VITALS: BP 117/79; PULSE 52; RESP 16; O2SAT 98
--- NOTE | 2022-08-22 21:24 | ED_ITS ---
HPI - General Adult General: Chief complaint: General Medical Stated complaint: CHANELLE LOWER EXTREMITY SWELLING Time Seen by Provider: 08/22/22 18:24 Source: patient History of Present Illness: 46-year-old female with a history of renal transplant. She states she has missed some doses of her medication. She has noticed some leg swelling. She is mildly short of breath. She is worried about her kidney function. No fever. Onset (ago): day(s) Location: lower extremity Radiation: non-radiation Severity: mild Quality: aching Pain Consistency: constant Associated symptoms: Reports short of breath; Deny chest pain, confusion, cough, dyspnea, fevers/chills, nausea, rash or vomiting Review of Systems Const: Denies: fever(s), chills or body aches Eyes: Denies: change in vision Card: Denies: chest pain Resp: Denies: dyspnea, productive cough, non-productive cough or wheezing GI: Denies: nausea or vomiting : Denies: difficulty voiding Skin/Breast: Denies: rash Neuro: Denies: confusion PFSH ED PFSH: Medical History Falls Hypertension Hypothyroidism Locking of left knee Seizures Surgical History Kidney transplant status Social History Smoking and tobacco status: never smoked Alcohol intake: never Physical Exam Const: COMMON NORMALS: no acute distress GENERAL APPEARANCE: cooperative; not ill appearing and not frail appearing HENMT: COMMON NORMALS: normocephalic, atraumatic and Normal external nose present HEAD & SCALP: normocephalic and atraumatic FACE & SINUS: normal facial exam and face symmetric NOSE: Normal external nose present Eye: COMMON NORMALS: Equal, round and reactive pupils present and EOMs intact bilaterally PUPIL: Yes Equal, round and reactive pupils present Neck/C-Spine: GENERAL: Yes trachea midline Chest: CHEST: Yes Symmetrical chest wall rise Resp: COMMON NORMALS: normal respiratory effort, No retractions, No use of accessory muscles and clear to auscultation bilaterally AUSCULTATION: clear to auscultation bilaterally Cardio: COMMON NORMALS: regular rate and regular rhythm RATE: regular rate RHYTHM: regular rhythm GI: COMMON NORMALS: Normal to inspection, nondistended, normoactive bowel sounds present Extremity: GENERAL: Yes edema (2+) Neuro: MARYCHUY COMA SCALE: document GCS findings [place] coma scale eye o pening: Spontaneous [place] coma scale verbal response: Orientated [place] coma scale motor response: Obey commands Mary[place]uy coma scale total score: 15 SENSORY EXAM: Yes extremities (intact) Psych: COMMON NORMALS: mental status grossly normal and speech normal SPEECH: Yes normal speech Skin: COMMON NORMALS: no rashes or lesions noted GENERAL SKIN EXAM: no rashes or lesions noted Course Vital Signs: Vital signs: Vital Signs Temperature 97.8 F 08/22/22 17:21 Pulse Rate 52 L 08/22/22 21:11 Respiratory Rate 16 08/22/22 21:11 Blood Pressure 117/79 08/22/22 21:11 Pulse Oximetry 98 08/22/22 21:11 Oxygen Delivery Me thod 08/22/22 17:21 MDM - General Adult Medical Decision Making Patient has no significant trouble breathing, is not hypoxic. She has given lasix in the ER with some diuresis. BNP is not significantly elevated. Her crea tinine is baseline. She is inclined to follow up to continue to check on her kidney function. She'll be placed on four days of diuretic. She knows to return if worsening. Lab Data 08/22/22 19:25 08/22/22 19:25 Laboratory Results WBC 7.3 10^3/uL (4.0-10.0) 08/22/22 19:25 RBC 3.67 10^6/uL (4.1-5.3) L 08/22/22 19:25 Hgb 12.4 g/dL (11.5-15.3) 08/22/22 19:25 Hct 39.1 % (37.0-47.0) 08/22/22 19:25 MCV 106.5 fl (81-99) H 08/22/22 19:25 MCH 33.8 pg (28.0-34.0) 08/22/22 19:25 MCHC 31.7 g/dL (30.0-36.0) 08/22/22 19:25 RDW 13.8 % (12.1-15.1) 08/22/22 19:25 Plt Count 167 10^3/cmm (130-400) 08/22/22 19:25 MPV 11.5 fL (7.4-10.4) H 08/22/22 19:25 Neut % (Auto) 58.3 % 08/22/22 19:25 Lymph % (Auto) 27.1 % 08/22/22 19:25 Drew % (Auto) 11.3 % 08/22/22 19:25 Eos % (Auto) 1.4 % 08/22/22 19:25 Baso % (Auto) 0.4 % 08/22/22 19:25 Neut # (Auto) 4.23 10^3/uL (1.8-7.7) 08/22/22 19:25 Lymph # (Auto) 2.0 10^3/uL (0.8-4.8) 08/22/22 19:25 Drew # (Auto) 0.8 10^3/uL (0.2-0.9) 08/22/22 19:25 Eos # (Auto) 0.1 10^3/uL (0.0-0.8) 08/22/22 19:25 Baso # (Auto) 0.0 10^3/uL (0.0-0.1) 08/22/22 19:25 Nucleated RBC % (auto) 0.3 % 08/22/22:25 Nucleated RBCs # 0.0 /100WBC 08/22/22 19:25 Sodium 134 mmol/L (136-145) L 08/22/22 19:25 Potassium 5.0 mmol/L (3.5-5.1) 08/22/22 19:25 Chloride 104 mmol/L (98-107) 08/22/22 19:25 Carbon Dioxide 23 mmol/L (22-29) 08/22/22 19:25 Anion Gap 12.0 (5-19) 08/22/22 19:25 BUN 37 mg/dL (6-20) H 08/22/22 19:25 Creatinine 1.1 mg/dL (0.5-0.9) H 08/22/22 19:25 GFR Calculation 53.0 mL/min (90-130) L 08/22/22 19:25 Glucose 95 mg/dL (65-115) 08/22/22 19:25 Calculated Osmolality 286 mOsm/kg (285-295) 08/22/22 19:25 Calcium 10.7 mg/dL (8.5-10.5) H 08/22/22 19:25 Total Bilirubin 0.2 mg/dL (0.15-1.2) 08/22/22 19:25 AST 12 U/L (0-32) 08/22/22 19:25 ALT 13 U/L (0-33) 08/22/22 19:25 Alkaline Phosphatase 68 U/L (35-105) 08/22/22 19:25 NT-Pro-B Natriuret Pep 557 pg/mL (0-125) H 08/22/22 19:25 Total Protein 6.3 g/dL (6.6-8.7) L 08/22/22 19:25 Albumin 3.6 g/dL (3.5-5.2) 08/22/22 19:25 Globulin 2.7 g/dL (1.3-4.6) 08/22/22 19:25 HCG, Qual Negative (Negative) 08/22/22 19:34 Urine Color Yellow (Yellow) 08/22/22 19:34 Urine Appearance Clear (CLEAR) 08/22/22 19:34 Urine pH 6 (5-7) 08/22/22 19:34 Ur Specific [place] 1.020 (1.005-1.030) 08/22/22 19:34 Urine Protein Neg (Negative) 08/22/22 19:34 Urine Glucose (UA) Norm (Normal) 08/22/22 19:34 Urine Ketones Negative (Negative) 08/22/22 19:34 Urine Blood Neg (Negative) 08/22/22 19:34 Urine Nitrate Negative (Negative) 08/22/22 19:34 Urine Bilirubin Neg (Negative) 08/22/22 19:34 Urine Urobilinogen Norm mg/dL (Negative) 08/22/22 19:34 Ur Leukocyte Esterase Negative (Negative) 08/22/22 19:34 Valproic Acid 46.8 ug/mL (50-100) L 08/22/22 19:25 Discharge Plan Discharge Patient Disposition: Home Clinical Impression: Kidney transplant status, Bilateral edema of lower extremity Condition: Stable Prescriptions: New Lasix 40 mg tablet 40 mg PO DAILY Qty: 4 0RF No Action prednisone 5 mg tablet 5 mg PO DAILY sodium bicarbonate 650 mg tablet 650 mg PO BID mycophenolate sodium 360 mg tablet,delayed release (DR/EC) 720 mg PO BID tacrolimus 1 mg tablet extended release 24 hr 1 mg PO BID divalproex 250 mg tablet,delayed release (DR/EC) See Rx Instructions .ROUTE .COMPLEX Qty: 540 3RF Dose Instruction: TAKE 3 TABLETS BY MOUTH TWICE A DAY Rx Instructions: TAKE 3 TABLETS BY MOUTH TWICE A DAY Lasix 20 mg tablet 10 mg PO DAILY Qty: 30 0RF Discharge Orders: Discharge ED (Routine); Ordered 08/22/22 Ordered By: Neeraj Mendoza Referrals: Sari Dover, WHOLESALE LOAN PROCESSOR [Primary Care Provider] - 4-7 days Patient Instructions: Leg Edema (ED) Activity Restrictions/Additional Instructions: Elevate your legs. Increase your Lasix to 40 mg daily for the next 4 days as instructed. Then back to your normal dose. Compression stockings may help as well. Follow-up with your doctor this week. Coding Level of Care Code ED Machine Tracer for Austen Fwmacarena Exam Comprehensive
[2022-08-22 23:09] LABS: Valproic Acid Level 46.8 ug/mL (50-100)
== END 2022-08-22 21:45 | disposition home or self-care (01) ==
PROVIDERS: Emergency Medicine; Emergency Provider Emergency Medicine; PCP Nurse Practitioner Family
DX: R60.0 Localized edema (principal); Z94.0 Kidney transplant status; I10 Essential (primary) hypertension
CPT/HCPCS: 80053; 80164; 81003; 81025; 83880; 85025; 96374; 99284; J1940

== ENCOUNTER 2024-04-16 21:54 | Inpatient (IN) | payer MEDICARE, MEDICAID, SELFPAY ==
[2024-04-16 21:57] VITALS: BP 131/86; PULSE 98; RESP 18; TEMP 36.7; O2SAT 98; BMI 38.2
[2024-04-16 22:35] LABS: Basophils % 0.4 %; Eosinophils # 0.1 10^3/uL (0.0-0.8); Eosinophils % 0.8 %; Hematocrit 39.8 % (36-47); Lymphocytes # 1.3 10^3/uL (0.8-4.8); Lymphocytes % 12.3 %; Mean Corpuscular HGB Conc 31.2 g/dL (30-55); Mean Corpuscular Hemoglobin 32.3 pg (27-33); Mean Corpuscular Volume 103.6 fl (85-98); Mean Platelet Volume 11.3 fL (7.4-10.4); Monocytes # 1.5 10^3/uL (0.2-0.9); Monocytes % 13.8 %; Neutrophils % 72.4 %; Nucleated Red Blood Cells % 0 %; Platelet Count 224 10^3/cmm (157-399); Red Blood Count 3.84 10^6/uL (3.85-5.65); White Blood Count 10.77 10^3/uL (3.29-11.43)
--- NOTE | 2024-04-16 22:41 | ED_ITS ---
HPI - Extremity Problem 2 General: Chief complaint: Extremity Problem,Nontraumatic Stated complaint: swollen foot Time Seen by Provider: 04/16/24 22:06 History of Present Illness: Patient presents to the ER after noticing that her legs were swollen and red today. It is worse in the left leg. She did not notice it yesterday. Patient also has sores and possible bites on both legs. Patient also states she has not been able to get up all day long. Patient is a kidney transplant patient and is on immunosuppressants. Patient states she had her kidney transplant done at the [facility] in 2016 Related Data Home Medications Medication Instructions Recorded Confirmed mycophenolate sodium 360 mg 720 mg PO BID 08/28/19 03/22/22 tablet,delayed release prednisone 5 mg tablet 5 mg PO DAILY 08/28/19 03/22/22 sodium bicarbonate 650 mg tablet 650 mg PO BID 08/28/19 03/22/22 tacrolimus 1 mg tablet,extended 1 mg PO BID 08/28/19 03/22/22 release 24 hr Previous Rx's Medication Instructions Recorded furosemide 20 mg tablet (Lasix) 10 mg (1/2 x 20 mg) PO DAILY #30 03/10/20 tabs furosemide 40 mg tablet (Lasix) 40 mg PO DAILY #4 tabs 08/22/22 divalproex 250 mg tablet,delayed See Rx Instructions .Route 09/14/23 release .COMPLEX #540 tabs sulfamethoxazole 400 1 tab PO BID 7 days #14 tabs 04/17/24 mg-trimethoprim 80 mg tablet (Bactrim) Allergies Allergy/AdvReac Type Severity Reaction Status Date / Time meperidine [From Demerol] Allergy ALGY-Rash Verified 04/16/24 22:06 phenobarbital Allergy ALGY-Rash Verified 04/16/24 22:06 Review of Systems 2 General: Reports: 10 or more systems reviewed and unremarkable except in HPI and below PFSH ED 2 PFSH: Medical History Falls Locking of left knee Hypothyroidism Seizures Hypertension Surgical History Kidney transplant status Social History Smoking and tobacco/nicotine status: never used tobacco/nicotine Alcohol intake: never Substance/Drug Use: never Physical Exam 2 Const: COMMON NORMALS: no acute distress, average body habitus, patient oriented x3, no limitations, healthy appearing, alert and well nourished HENMT: COMMON NORMALS: normocephalic, atraumatic, hearing grossly normal bilaterally, external ears normal, Normal external nose present and moist oral mucous membranes HEAD & SCALP: normocephalic and atraumatic NOSE: Normal external nose present EXTERNAL EAR: Yes external ears normal Neck/C-Spine: COMMON NORMALS: no JVD Chest: COMMONS NORMALS: normal inspection of the chest and normal palpation of entire chest wall Resp: COMMON NORMALS: normal respiratory effort, No retractions, No use of accessory muscles and clear to auscultation bilaterally AUSCULTATION: clear to auscultation bilaterally Cardio: COMMON NORMALS: no JVD, regular rate, regular rhythm, S1 normal heart sound present, S2 normal heart sound present, No gallops present (Cardio), No clicks present (Cardio), No murmurs present (Cardio) and No rub (Cardio) R ATE: regular rate RHYTHM: regular rhythm HEART SOUNDS: S1 normal heart sound present and S2 normal heart sound present GI: COMMON NORMALS: Normal to inspection, nondistended, normoactive bowel sounds present, Soft to palpation, non-tender, No hepatosplenomegaly present and no masses PALPATION: Yes Soft to palpation and Yes No hepatosplenomegaly present Extremity: NARRATIVE EXTREMITY EXAM: 1+ pitting edema in the right lower extr emity, 2+ pitting edema in the left lower extremity, erythema from the tips of the toes but three quarters the way up the [place] as well as ulcerations and swelling down by the foot. There is also peters that could be consistent with possible bites in this area up to of the mid thigh on the left side. Neuro: COMMON NORMALS: patient oriented x3 SENSORIUM/ORIENTATION: Yes alert Course 2 Vital Signs: Vital signs: Vital Signs Temperature 98.0 F 04/16/24 21:57 Pulse Rate 98 04/16/24 21:57 Respiratory Rate 18 04/16/24 21:57 Blood Pressure 131/86 04/16/24 21:57 Pulse Oximetry 98 04/16/24 21:57 Oxygen Delivery Me thod Room Air 04/16/24 21:57 MDM - Extremity (Nontraumatic) Medical Decision Making Upon talking to nursing patient not able to get up on her left foot but had a very hard time bending her leg straight cathing to get urine. Patient has not been eating or drinking and is therefore weak with worsening kidney function. Lab work was reviewed which revealed renal insufficiency with a BUN/creatinine of 41 and 1.9, procalcitonin 0.79, urinalysis showed UTI. 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 Discussed patient with Dr. Rouse patient is hold the Bactrim Go ahead and put an IV in either arm since her dialysis fistulas are old and she is not using currently and we will admit the patient for inpatient IV antibiotics. Discussed this case with Dr. Cano cracker and cookie machine operator with the transplant team at [facility]. She says this appears more likely than not dehydration along with infection such as urinary tract infection/cellulitis and not necessarily a rejection type reaction. She states she feels comfortable and is keeping her down here for couple days and giving her IV hydration and antibiotics and if she gets better and was just infection if she gets worse then she would be more than happy to see her up there. Medical Records I reviewed the patient's medical records. Lab Data I reviewed the patient's lab results. 04/16/24 22:30 04/16/24 22:30 Laboratory Results WBC 10.77 10^3/uL (3.29-11.43) 04/16/24 22: RBC 3.84 10^6/uL (3.85-5.65) L 04/16/24 22: Hgb 12.40 g/dL (11.27-16.99) 04/16/24 22:30 Hct 39.8 % (36-47) 04/16/24 22:30 MCV 103.6 fl (85-98) H 04/16/24 22: MCH 32.3 pg (27-33) 04/16/24 22: MCHC 31.2 g/dL (30-55) 04/16/24 22: RDW 14.0 % (12.1-15.1) 04/16/24 22: Plt Count 224 10^3/cmm (157-399) 04/16/24 22: MPV 11.3 fL (7.4-10.4) H 04/16/24 22:30 Neut % (Auto) 72.4 % 04/16/24 22:30 Lymph % (Auto) 12.3 % 04/16/24 22:30 Irion % (Auto) 13.8 % 04/16/24 22:30 Eos % (Auto) 0.8 % 04/16/24 22:30 Baso % (Auto) 0.4 % 04/16/24 22:30 Neut # (Auto) 7.80 10^3/uL (1.8-7.7) H 04/16/24 22:30 Lymph # (Auto) 1.3 10^3/uL (0.8-4.8) 04/16/24 22:30 Irion # (Auto) 1.5 10^3/uL (0.2-0.9) H 04/16/24 22:30 Eos # (Auto) 0.1 10^3/uL (0.0-0.8) 04/16/24 22:30 Baso # (Auto) 0.0 10^3/uL (0.0-0.1) 04/16/24 22:30 Nucleated RBC % (auto) 0 % 04/16/24 22: Nucleated RBCs # 0.0 /100WBC 04/16/24 22:30 Sodium 143 mmol/L (136-145) 04/16/24 22:30 Potassium 4.5 mmol/L (3.5-5.1) 04/16/24 22:30 Chloride 105 mmol/L (98-107) 04/16/24 22:30 Carbon Dioxide 21 mmol/L (22-29) L 04/16/24 22:30 Anion Gap 21.5 (5-19) H 04/16/24 22:30 BUN 41 mg/dL (6-20) H 04/16/24 22:30 Creatinine 1.9 mg/dL (0.5-0.9) H 04/16/24 22:30 GFR Calculation 28.0 mL/min (90-130) L 04/16/24 22:30 Glucose 91 mg/dL (65-115) 04/16/24 22:30 Calculated Osmolality 306 mOsm/kg (285-295) H 04/16/24 22:30 Lactic Acid 1.4 mmol/L (0.5-2.2) 04/16/24 22:30 Calcium 10.9 mg/dL (8.5-10.5) H 04/16/24 22:30 Phosphorus 1.9 mg/dL (2.5-4.5) L 04/16/24 22:30 Magnesium 2.2 mg/dL (1.7-2.3) 04/16/24 22: Total Bilirubin 0.8 mg/dL (0.15-1.2) 04/16/24 22:30 AST 24 U/L (0-32) 04/16/24 22: ALT 14 U/L (0-33) 04/16/24 22: Alkaline Phosphatase 66 U/L (35-105) 04/16/24 22: NT-Pro-B Natriuret Pep 410 pg/mL (0-125) H 04/16/24 22:30 Total Protein 6.5 g/dL (6.6-8.7) L 04/16/24 22: Albumin 3.5 g/dL (3.5-5.2) 04/16/24 22:30 Globulin 3.0 g/dL (1.3-4.6) 04/16/24 22:30 Procalcitonin 0.79 ng/mL (0-0.5) H 04/16/24 22:30 Urine Color Dark yellow (Yellow) A 04/16/24 23: Urine Appearance Cloudy (CLEAR) A 04/16/24 23: Urine pH 5.0 (5-7) 04/16/24 23: Ur Specific [place] 1.024 (1.005-1.030) 04/16/24 23: Urine Protein 1+ (Negative) A 04/16/24 23: Urine Glucose (UA) Negative (Normal) 04/16/24 23: Urine Ketones 1+ (Negative) H 04/16/24 23: Urine Blood 3+ (Negative) A 04/16/24 23: Urine Nitrate Positive (Negative) A 04/16/24 23: Urine Bilirubin 1+ (Negative) H 04/16/24 23: Urine Urobilinogen 1.0 mg/dL (Negative) 04/16/24 23: Ur Leukocyte Esterase 2+ (Negative) A 04/16/24 23:29 Urine RBC 0-4 /hpf (0-2) H 04/16/24 23:29 Urine WBC 21-50 /hpf (0-5) H 04/16/24 23:29 Ur Squamous Epith Cells 0-4 /hpf (0-5) H 04/16/24 23:29 Amorphous Sediment Not Reportable 04/16/24 23:29 Urine Bacteria 4+ /hpf (NONE) H 04/16/24 23:29 Valproic Acid 3.5 ug/mL (50-100) L 04/16/24 22:30 All radiology interpretation(s) finalized by discharge Discharge Plan Discharge Patient Disposition: Admitted As Inpatient Admit Provider: Bull Ascencio Clinical Impression: Cellulitis Qualifiers: Site of cellulitis: extremity Site of cellulitis of extremity: lower extremity Laterality: left Qualified Code(s): L03.116 - Cellulitis of left lower limb Chronic renal insufficiency Qualifiers: Chronic kidney disease stage: unspecified stage Qualified Code(s): N18.9 - Chronic kidney disease, unspecified Urinary tract infection Qualifiers: Urinary tract infection type: acute cystitis Hematuria presence: with hematuria Qualified Code(s): N30.01 - Acute cystitis with hematuria Condition: Stable Coding Level of Care Code ED Private Wealth Advisor for Austen Osman
[2024-04-16 22:56] LABS: Lactic Sepsis W/Reflex 1.4 mmol/L (0.5-2.2); Valproic Acid Level 3.5 ug/mL (50-100)
[2024-04-16 23:27] LABS: Alanine Aminotransferase 14 U/L (0-33); Albumin Level 3.5 g/dL (3.5-5.2); Alkaline Phosphatase 66 U/L (35-105); Anion Gap 21.5 (5-19); Aspartate Amino Transferase 24 U/L (0-32); Blood Urea Nitrogen 41 mg/dL (6-20); Calcium 10.9 mg/dL (8.5-10.5); Carbon Dioxide 21 mmol/L (22-29); Chloride 105 mmol/L (98-107); Creatinine Clr Calc Pharmacy 42.4611; Glucose 91 mg/dL (65-115); Magnesium 2.2 mg/dL (1.7-2.3); NT Pro B Type Natriuretic Pept 410 pg/mL (0-125); Osmolality Calculated 306 mOsm/kg (285-295); Phosphorus 1.9 mg/dL (2.5-4.5); Potassium 4.5 mmol/L (3.5-5.1); Procalcitonin 0.79 ng/mL (0-0.5); Sodium 143 mmol/L (136-145); Total Bilirubin 0.8 mg/dL (0.15-1.2); Total Protein 6.5 g/dL (6.6-8.7)
[2024-04-16 23:35] LABS: Charge for UA Resulting for Rev
[2024-04-16 23:36] VITALS: BP 122/80; PULSE 91; RESP 18; O2SAT 100
[2024-04-16 23:38] LABS: Bilirubin Urine 1+ (Negative); Blood Urine 3+ (Negative); Glucose Urine UA Negative (Normal); Ketones Urine 1+ (Negative); Leukocyte Esterase Urine 2+ (Negative); Nitrate Urine Positive (Negative); Protein Urine 1+ (Negative); Specific Gravity, Urine 1.024 (1.005-1.030); Urine Appearance Cloudy (CLEAR)
[2024-04-16 23:56] LABS: Bacteria Urine 4+ /hpf; RBC Urine 0-4 /hpf (0-2); Squamous Epithelial Cell Urine 0-4 /hpf (0-5); UA Manual Slide Review YES; Urine Color Dark Yellow (Yellow); WBC Urine 21-50 /hpf (0-5)
[2024-04-16 23:57] LABS: Add Urine Culture? Yes
[2024-04-17] VITALS (13 sets, daily range): BP systolic 93–128; BP diastolic 58–76; PULSE 48–104; RESP 16–19; TEMP 36.7–37.3; O2SAT 92–98; BMI 31.4
--- NOTE | 2024-04-17 00:54 | CTR_ITS ---
PROCEDURE INFORMATION: Exam: CT Left Lower Extremity, Leg Exam date and time: 04/17/2024 1:21 AM Age: 48 years old Clinical indication: Pain; Foot and lower leg; Left; Additional info: Swelling, pain TECHNIQUE: Imaging protocol: CT of the left lower extremity without contrast was performed. Exam focused on the lower leg. Radiation optimization: All CT scans at this facility use at least one of these dose optimization techniques: automated exposure control; mA and/or kV adjustment per patient size (includes targeted exams where dose is matched to clinical indication); or iterative reconstruction. COMPARISON: CT foot LT wo con* [id number] 04/17/2024 1:21 AM RADIATION DOSE METRICS: Total DLP (mGy-cm): 204.54 FINDINGS: Bones/joints: There is fatty atrophy of skeletal muscle. No bony destructive change. There is a old unhealed fracture of the lateral tibial metaphysis. No significant arthropathy. Soft tissues: Subcutaneous calcifications suggest chronic venous stasis. There is mild anterior soft tissue swelling over the ankle and forefoot. No discrete fluid collection. No soft tissue gas. CT/CT lower leg LT wo con* [id number] IMPRESSION: There is soft tissue swelling over the anterior aspect of the ankle and forefoot without soft tissue gas or radiopaque foreign body. No destructive bony lesions or acute fracture.
--- NOTE | 2024-04-17 00:54 | CT_ITS ---
WS: [id number] Noncontrast CT LEFT foot TECHNIQUE: Noncontrast CT LEFT foot with coronal and sagittal reformatted images. CLINICAL INFORMATION: swelling, pain COMPARISON: None. DLP: 647.[address] scans at [facility] use at least one of these dose optimization techniques: automated e xposure control; mA and/or kV adjustment per patient size (includes targeted exams where dose is matc hed to clinical indication); or iterative reconstruction. FINDINGS: Osteopenia. No acute fractures. Soft tissue edema dorsal foot. No evidence of drainable abscess or fl uid collection. Plantar and Achilles calcaneal spurring. Normal ankle mortise with mild degenerative changes. Normal tibial plafond. Normal cuboid. Cuneiforms appear normal. No evidence of osteomyelitis . Normal visualized tarsal bones. Normal talonavicular reticulation. Bony ankylosis of the distal tib iofibular articulation. CT/CT foot LT wo con* [id number] IMPRESSION: No acute LEFT foot findings
--- NOTE | 2024-04-17 00:54 | CTR_ITS ---
PROCEDURE INFORMATION: Exam: CT Abdomen And Pelvis Without Contrast Exam date and time: 04/17/2024 1:15 AM Age: 48 years old Clinical indication: Abdominal pain; Additional info: Fever, chills, UTI TECHNIQUE: Imaging protocol: Computed tomography of the abdomen and pelvis without contrast. Radiation optimization: All CT scans at this facility use at least one of these dose optimization techniques: automated exposure control; mA and/or kV adjustment per patient size (includes targeted exams where dose is matched to clinical indication); or iterative reconstruction. COMPARISON: CT kidney stone [id number] 01/21/2020 8:12 PM RADIATION DOSE METRICS: Total DLP (mGy-cm): 941.25 FINDINGS: Lungs: Clear basilar lung parenchyma. Pleural spaces: No pleural fluid. Heart: Normal heart size. Liver: Normal configuration. Homogeneous parenchyma. Gallbladder and biliary ducts: No regional inflammation. No calcified stones. No ductal dilation. Pancreas: Scattered punctate calcifications are noted in the pancreas. No pancreatic edema or visible mass. Spleen: Normal. No splenomegaly. Adrenal glands: Normal configuration. Kidneys and ureters: End-stage atrophy of the [place] kidneys. Transplant kidney is situated in the left iliac fossa without evidence of obstruction or peritransplant fluid collection. Stomach and bowel: Unremarkable. No obstruction. No mural thickening. Appendix: Normal appendix is confirmed. Intraperitoneal space: No free air. No significant fluid collection. Vasculature: Mild aortoiliac calcific atherosclerosis without aneurysm. Lymph nodes: No enlarged lymph nodes. Urinary bladder: Unremarkable as visualized. Reproductive: Prior hysterectomy. No evidence of vaginal cuff or adnexal mass. Bones/joints: There is severe arthropathy of the right hip with collapse of the femoral head compatible with complicated avascular necrosis. Left femoral head currently appears normal. No acute fracture or destructive lesion. Soft tissues: There is a partly visualized loop graft in the right proximal thigh. CT/CT abdomen pelvis wo con [id number] IMPRESSION: 1. No acute abnormality of the severely atrophic [place] kidneys or left iliac fossa transplant kidney. In particular, there is no evidence urolithiasis. No peritransplant fluid collection or edema. 2. 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 On today's exam, there is evidence of flattening of the right femoral head with advanced secondary osteoarthritis. Consider MR of the left hip in order to detect AVN in its early and more treatable stage.
--- NOTE | 2024-04-17 01:17 | USR_ITS ---
PROCEDURE INFORMATION: Exam: US Duplex Left Lower Extremity Veins, Limited Exam date and time: 04/17/2024 2:01 AM Age: 48 years old Clinical indication: Edema, localized; Lower extremity, left; Patient HX: No trauma, no history of dvt per patient. ; Additional info: Swelling TECHNIQUE: Imaging protocol: Real-time duplex ultrasound of the left extremity with 2-D lauren scale, color Doppler flow and spectral waveform analysis including responses to compression and other maneuvers (when performed) with image documentation. Limited exam focused on the left lower extremity veins. COMPARISON: CT foot LT wo con* [id number] 04/17/2024 1:21 AM FINDINGS: Left deep veins: Unremarkable. The common femoral, femoral, proximal profunda femoral and popliteal veins are patent without thrombus. Normal Doppler waveforms. Normal compressibility and/or augmentation response. There is occlusive thrombus in the peroneal veins. Superficial veins: Greater saphenous vein at the saphenofemoral junction is patent without thrombus. Soft tissues: Unremarkable. US/CV venous duplex [facility] [id number] IMPRESSION: Noncompressible peroneal veins are compatible with acute deep venous thrombosis. No additional thrombus demonstrated. In particular, no evidence of DVT in the thigh.
--- NOTE | 2024-04-17 01:21 | P.HP_ITS ---
Providers/Chief Complaint 2 Admitting Physician: Bull Ascencio MD Primary Care Provider: Sari Dover Chief Complaint: swollen foot History of Present Illness Brionna Ornelas is a 48 year old female with a past medical history of renal transplant in 2016, [facility], on mycophenolate, and tacrolimus and prednisone, history of seizures, who presents to [facility] due to fatigue, malaise, weakness in both legs, left leg pain. Currently patient is alert to person, to place, not to time she follows commands and is a bit drowsy, but can follow commands. She tells me that she had a renal transplant in 2016, she follows up with the nurse practitioner at [facility] but they typically communicate via phone she tells me, she has not gone to [place] in some period of time, she does remember the last time her tacrolimus levels were checked, or her dose was adjusted. She tells me that she has a history of bilateral AV fistulas, which according to her, are not functioning anymore. She tells me that over the last few days she has had fatigue, malaise, weakness, denies any flank pain, denies any dysuria, denies a history of kidney stones, weakness in bilateral legs, with now developing left leg swelling and pain and tenderness. She tells me that she has an infestation of cockroaches in her home and the cockroaches tend to bite at her feet, she thinks that is why her left leg has becomes quite swollen, erythematous, tender. She denies any falls, no trauma, no injuries. She denies any fevers but does report chills, feels nauseous, no vomiting. She does have severe pain in her left leg. Pain in the left foot, left lower foot. Denies any trauma to her foot, denies any history of diabetes, denies a history of neuropathy. -Reviewed patient's lab creatinine 1.9, BUN 41, anion gap 21.5, source infection UTI, concern for left lower extremity cellulitis, patient is on tacrolimus, prednisone, mycophenolate -Spoke to ER provider, my concerns for her elevated creatinine given that she is a renal transplant patient, discussed my concerns that we should speak to transplant team at [facility], obtain tacrolimus level, to see if patient would be better served at [facility], given that she received her transplant their, her creatinine is elevated at 1.9, he had limited ability to monitor her tacrolimus levels, do not have the expertise of the transplant team -ER provider spoke to Dr. Cano, at [facility], physician believe that patient's current condition is likely from dehydration and underlying infection rather than transplant rejection, recommended for patient to be admitted here at [facility], transfer at this time is not needed, and if patient's condition worsens, certainly patient could be then transferred to [facility] Review of Systems 2 Const: Reports: chills, fatigue and malaise; Denies: fever(s) Card: Denies: chest pain Resp: Denies: dyspnea GI: Reports: nausea; Denies: abdominal pain : Denies: flank pain, difficulty voiding or dysuria Musc: Reports: muscle weakness; Denies: back pain Skin/Breast: Reports: rash, pruritus and erythema Neuro: Reports: weakness in extremities; Denies: headache(s), frequent falls, dizziness or confusion Medications/Allergies Home Medications Medication Instructions Recorded Confirmed Last Taken Type mycophenolate sodium 360 mg 720 mg PO BID 08/28/19 03/22/22 03/10/20 History tablet,delayed release prednisone 5 mg tablet 5 mg PO DAILY 08/28/19 03/22/22 03/10/20 History sodium bicarbonate 650 mg tablet 650 mg PO BID 08/28/19 03/22/22 03/10/20 History tacrolimus 1 mg tablet,extended 1 mg PO BID 08/28/19 03/22/22 03/10/20 History release 24 hr furosemide 20 mg tablet (Lasix) 10 mg (1/2 x 20 mg) PO DAILY #30 03/10/20 03/22/22 Unknown Rx tabs furosemide 40 mg tablet (Lasix) 40 mg PO DAILY #4 tabs 08/22/22 Unknown Rx divalproex 250 mg tablet,delayed See Rx Instructions .Route 09/14/23 Unknown Rx release .COMPLEX #540 tabs sulfamethoxazole 400 1 tab PO BID 7 days #14 tabs 04/17/24 Unknown Rx mg-trimethoprim 80 mg tablet (Bactrim) Allergies Allergy/AdvReac Type Severity Reaction Status Date / Time meperidine [From Demerol] Allergy ALGY-Rash Verified 04/16/24 22:06 phenobarbital Allergy ALGY-Rash Verified 04/16/24 22:06 PFSH Acute 2 PFSH: Medical History Falls Locking of left knee Hypothyroidism Seizures Hypertension Surgical History Kidney transplant status Social History Smoking and tobacco/nicotine status: never used tobacco/nicotine Alcohol intake: never Substance/Drug Use: never Vitals/I&O/Wt Last Vital Signs Temp 98.0 F 04/16/24 21:57 Pulse 98 04/16/24 21:57 Resp 18 04/16/24 21:57 BP 131/86 04/16/24 21:57 Pulse Ox 98 04/16/24 21:57 O2 Del Method Room Air 04/16/24 21:57 Weight last 48 hrs Weight 104.326 kg Physical Exam 2 Const: COMMON NORMALS: no acute distress and patient oriented x3 HENMT: COMMON NORMALS: normocephalic HEAD & SCALP: normocephalic Eye: COMMON NORMALS: Equal, round and reactive pupils present and EOMs intact bilaterally Neck/C-Spine: COMMON NORMALS: no JVD Lymph: LYMPHATIC: no lymphadenopathy noted Resp: COMMON NORMALS: normal respiratory effort, No retractions, No use of accessory muscles and clear to auscultation bilaterally AUSCULTATION: clear to auscultation bilaterally Cardio: COMMON NORMALS: no JVD, regular rate, regular rhythm, S1 normal heart sound present and S2 normal heart sound present RATE: regular rate RHYTHM: regular rhythm HEART SOUNDS: S1 normal heart sound present and S2 normal heart sound present GI: COMMON NORMALS: Normal to inspection, nondistended, normoactive bowel sounds present, Soft to palpation and non-tender Extremity: NARRATIVE EXTREMITY EXAM: Left lower extremity, 1+ pitting edema ? Left lower extremity, forefoot, on dorsal aspect of forefoot, she has 2 superficial open areas, measuring 1 x 1 cm, look like superficial ulcers, nondraining His left lower extremity, foot, erythematous, swelling, does have skin breaks, dorsal aspect, she also has skin breaks in her second digit ? Left lower extremity erythematous, swelling, tenderness, swelling throughout, does have calf tenderness Assessment multiple insect bites throughout left lower extremity, also has insect bites to right lower extremity Neuro: COMMON NORMALS: patient oriented x3, CN's II-XII intact bilaterally and moves all extremities Psych: COMMON NORMALS: mental status grossly normal Data 04/16/24 22:30 04/16/24 22:30 A&P Assessment and plan (1) Acute kidney injury: (2) Urinary tract infection: Qualifiers: Hematuria presence: with hematuria Urinary tract infection type: acute cystitis Qualified Code(s): N30.01 - Acute cystitis with hematuria (3) Kidney transplant status: (4) Cellulitis: Qualifiers: Laterality: left Site of cellulitis: extremity Site of cellulitis of extremity: lower extremity Qualified Code(s): L03.116 - Cellulitis of left lower limb Plan Urinary tract infection ? Follow urine cultures ? Follow blood cultures ? CT abdomen pelvis without contrast ? Continue Zosyn Left lower extremity swelling, concerning for cellulitis ? With pain and tenderness throughout the left lower leg, to the left foot - reported cockroach bites - immunocompromise state ? Plan ? Venous ultrasound for DVT ? Follow cultures as above ? Continue vancomycin exodus continue Zosyn History of renal transplant ? Will need to clarify patient's dosing of tacrolimus, mycophenolate, prednisone as patient is unsure, through patient's pharmacy in the morning ? Tacrolimus level obtained Acute kidney injury # Renal transplant patient # [facility] [place] catheter ? Monitor urine output ? Monitor creatinine History of epilepsy ? Will need to clarify patient's dosing of Depakote Full code ? Heparin for DVT prophylaxis Attestations 2 Medical Necessity Statement*: Patient requires hospitalization, inpatient, greater than 2 midnights for UTI, left lower extremity swelling concerning for cellulitis evaluate for DVT, UTI, no renal transplant patient Diagnoses Acute kidney injury N17.9 Urinary tract infection N30.01 Hematuria presence: with hematuria Urinary tract infection type: acute cystitis Kidney transplant status Z94.0 Cellulitis L03.116 Laterality: left Site of cellulitis: extremity Site of cellulitis of extremity: lower extremity
[2024-04-17] MEDS: morphine 4 mg/mL SDV 1 mL 2 MG IVP ×2 (03:52→07:49)
[2024-04-17] MEDS: sodium chloride 0.9% 1,000 ML 75 ML IV ×2 (03:53→16:46)
[2024-04-17] MEDS: heparin 5,000 unit/mL INJ 1 mL 5000 UNIT SUBCUT (03:53)
[2024-04-17] MEDS: pantoprazole 40 mg SDV IVP (03:53)
[2024-04-17] MEDS: vancomycin 1,250 MG/250 ML PIGGYBACK 175 MG IV (04:06)
--- NOTE | 2024-04-17 04:27 | PC.NURSE ---
Dr. Ascencio gave order via telephone to not give initial bolus for Heparin drip. No thrill or bruit in bilateral fistulas. Patient states they have not been used in several years. Dr. Ascencio gave okay to place IVs in patient's arms.
--- NOTE | 2024-04-17 04:32 | PC.NURSE ---
Addendum entered by Minda Underwood RN 04/17/24 06:00: NephewDusty contacted and asked to bring in patient's home medications from patient's home. Dusty states that he will be bringing them later today. Addendum entered by Minda Undrewood RN 04/17/24 04:44: Patient does not know her home medications. Unable to update med rec at this time. Original Note: Patient states that she has not taken her anti-rejection medication in 2 days due to not being able to walk. Patient told charge nurse that she could still walk yesterday. Patient is able to tell me the year and month and where she is at, but is not able to tell me the exact date. Educated patient on extreme importance of taking anti-rejection medication. Educated that we do not carry this medication and that the best option is for someone to get it from her home and bring it here. Patient states that the [facility] mails the medication to her. Patient states that her nephew can go in through the back door and get it. Patient provided nephew's (Dusty) phone number to me: [phone].
[2024-04-17 05:03] LABS: Erythrocyte Sedimentation Rate 46 mm/hr (0-15)
[2024-04-17 05:05] LABS: Platelet Count 197 10^3/cmm (157-399)
[2024-04-17] MEDS: heparin drip 25,000 UNIT/500 ML PREMIX 24 UNIT IV (05:09)
[2024-04-17 05:29] LABS: C Reactive Protein 276.7 mg/L (0.0-4.9); Cholesterol 148 mg/dL (0-200); HDL Cholesterol 29 mg/dL (60-100); LDL Cholesterol Calculated 83 mg/dL (50-129); LDL HDL Ratio 2.86 RATIO (0.00-3.22); Thyroid Stimulating Hormone 3.21 uIU/mL (0.27-4.20); Triglycerides 178 mg/dL (0-150)
[2024-04-17 05:30] LABS: Estmated Average Glucose 126
[2024-04-17] MEDS: piperacillin-tazobactam 3.375 GM in sodium chloride 0.9% (plus) 50 ML IV (05:30)
[2024-04-17 05:44] LABS: Partial Thromboplastin Time 41.1 SECONDS (23.9-36.7)
[2024-04-17 05:58] LABS: INR 1.22 (0.8-1.2)
--- NOTE | 2024-04-17 06:21 | PC.NURSE ---
Patient states that she lives alone. Patient states she has cockroaches in her home.
--- NOTE | 2024-04-17 07:18 | PC.NURSE ---
Dr. Smith notified of the following: Brionna Ornelas in [address] is asking for something for pain for her left leg. She received PRN IV Morphine at 4 am. She cannot have it again until 8 am.
[2024-04-17] MEDS: predniSONE 5 mg Tablet PO (07:50)
--- NOTE | 2024-04-17 09:52 | W.PM.EVENTAC ---
Event Note Event Note: Patient is stating that she was in her usual state of health until 3 days ago until she started experiencing difficulty walking, normally she is independent, cooks for self, and Zofran for grocery shopping, Now she is having difficulty lifting her legs, she did not think about stroke H&P reviewed, patient examined Patient is lethargic and fatigued Laying supine I do not see any focal deficits but she is struggling to lift her legs off the bed, she is straining a lot to move her right leg Pupils are symmetrical No facial droop Looks dehydrated S1, S2 Hemodynamic stable Currently on room air Acute on chronic kidney disease Likely related to dehydration and use of nephrotoxic agents Avoid diuretics and Bactrim Will check tacrolimus level Lower extremity swelling with weakness Rule out stroke Will request PT She has nonpurulent cellulitis of left extremity New DVT as well Continue heparin for now will need low-dose Eliquis at the time of discharge History of renal transplant Will touch base with the pharmacy for medication reconciliation UTI: Continue antibiotics History of epilepsy continue antiepileptic regimen after verifying the dose
[2024-04-17 11:53] LABS: Partial Thromboplastin Time 135.7 SECONDS (23.9-36.7)
[2024-04-17] MEDS: cefTRIAXone 1,000 mg SDV 1000 MG IVP (12:22)
[2024-04-17] MEDS: HYDROcodone-acetaminophen 5-325 mg Tablet 1 TAB PO ×2 (12:25→16:53)
[2024-04-17] MEDS: levothyroxine 150 mcg Tablet 75 MCG PO (12:26)
[2024-04-17] MEDS: doxycycline 100 mg Tablet PO (16:45)
[2024-04-17] MEDS: divalproex DR 250 mg Tablet PO (16:45)
[2024-04-17] MEDS: sodium bicarbonate 650 mg Tablet PO (16:46)
[2024-04-17 19:14] LABS: Partial Thromboplastin Time 143.6 SECONDS (23.9-36.7)
[2024-04-18] VITALS (11 sets, daily range): BP systolic 94–108; BP diastolic 52–73; PULSE 48–72; RESP 16–18; TEMP 36.5–36.9; O2SAT 91–94
[2024-04-18 02:04] LABS: Bacillus cereus group Not Detected (NOT DETECT); Bacillus subtillis group Not Detected (NOT DETECT); Corynebacterium Not Detected (NOT DETECT); Cutibacterium acnes (P.acnes) Not Detected (NOT DETECT); Enterococcus Not Detected (NOT DETECT); Enterococcus faecalis Not Detected (NOT DETECT); Enterococcus faecium Not Detected (NOT DETECT); Lactobacillus species Not Detected (NOT DETECT); Listeria Not Detected (NOT DETECT); Listeria monocytogenes Not Detected (NOT DETECT); Micrococcus Not Detected (NOT DETECT); Pan Candida Not Detected (NOT DETECT); Pan Gram-Negative Not Detected (NOT DETECT); Staphylococcus epidermidis Not Detected (NOT DETECT); Staphylococcus lugdunensis Not Detected (NOT DETECT); Staphylococcus species Detected (NOT DETECT); Streptococcus agalactiae Not Detected (NOT DETECT); Streptococcus anginosus group Not Detected (NOT DETECT); Streptococcus pneumoniae Not Detected (NOT DETECT); Streptococcus pyogenes Not Detected (NOT DETECT); Streptococcus species Not Detected (NOT DETECT); mecA Not Detected (NOT DETECT); mecC Not Detected (NOT DETECT)
[2024-04-18 02:26] LABS: Basophils % 0.5 %; Hematocrit 35.9 % (36-47); Lymphocytes # 1.1 10^3/uL (0.8-4.8); Lymphocytes % 26.3 %; Mean Corpuscular HGB Conc 30.4 g/dL (30-55); Mean Corpuscular Hemoglobin 32.2 pg (27-33); Mean Corpuscular Volume 105.9 fl (85-98); Mean Platelet Volume 12.3 fL (7.4-10.4); Monocytes # 0.3 10^3/uL (0.2-0.9); Neutrophils # 2.55 10^3/uL (1.8-7.7); Neutrophils % 63.7 %; Nucleated Red Blood Cells % 0 %; Platelet Count 147 10^3/cmm (157-399); Red Blood Count 3.39 10^6/uL (3.85-5.65); Red Cell Distribution Width 13.9 % (12.1-15.1)
[2024-04-18 02:44] LABS: Partial Thromboplastin Time 62.5 SECONDS (23.9-36.7)
[2024-04-18 02:46] LABS: Blood Urea Nitrogen 31 mg/dL (6-20); Calcium 9.5 mg/dL (8.5-10.5); Carbon Dioxide 18 mmol/L (22-29); Chloride 107 mmol/L (98-107); Creatinine Clr Calc Pharmacy 60.6114; Glomerular Filtration Rate 47.6 mL/min (90-130); Glucose 128 mg/dL (65-115); Osmolality Calculated 290 mOsm/kg (285-295); Sodium 136 mmol/L (136-145)
[2024-04-18 02:52] LABS: Anion Gap 15.8 (5-19); Potassium 4.8 mmol/L (3.5-5.1)
[2024-04-18 03:27] LABS: Slide Review Slide Review Perform
[2024-04-18] MEDS: sodium chloride 0.9% 1,000 ML 75 ML IV ×2 (04:48→18:26)
[2024-04-18] MEDS: heparin drip 25,000 UNIT/500 ML PREMIX 14 UNIT IV (04:51)
[2024-04-18] MEDS: pantoprazole 40 mg SDV IVP (04:52)
[2024-04-18] MEDS: levothyroxine 150 mcg Tablet 75 MCG PO (05:00)
[2024-04-18] MEDS: vancomycin 1,250 MG/250 ML PIGGYBACK 166.67 MG IV (07:42)
[2024-04-18] MEDS: sodium bicarbonate 650 mg Tablet PO ×2 (08:05→17:13)
[2024-04-18] MEDS: doxycycline 100 mg Tablet PO ×2 (08:05→17:13)
[2024-04-18] MEDS: predniSONE 5 mg Tablet PO (08:05)
[2024-04-18] MEDS: divalproex DR 250 mg Tablet PO ×2 (08:05→17:13)
[2024-04-18] MEDS: HYDROcodone-acetaminophen 5-325 mg Tablet 1 TAB PO (08:11)
[2024-04-18 08:29] LABS: Partial Thromboplastin Time 72.7 SECONDS (23.9-36.7)
--- NOTE | 2024-04-18 08:50 | PC.CHAP ---
Pastoral Care Encounter/Spiritual Assessment Type of Contact [] Declined envelope adjuster visit [] Patient/Family/Request visit [] Outpatient visit [] Follow-up visit [] Physician referral [] Code/Alert [] Routine visit [] Staff referral [] Actively dying [] Patient sleeping [] Family support [] [] Out of room [] Palliative care [] [x] Receiving care in room [] Pre-surgical visit [] Trauma [] Long length of stay [] ICU visit [] Other: Relational/Emotional Strength [] Patient feels connected with others/family/visitors/staff [] Distress [] Loneliness/isolation [] Abandonment Spirituality of Patient [] Person of Izabela [] Attends Yarsanism of their Izabela [] Believes in Prayer [] Reads Bible or Jewish materials [] There are Spiritual issues to be addressed Restorative Rehab Aide Interventions [] Prayer [] Active listening [] Non-anxious presence [] Spiritual/emotional support [] Crisis/trauma care [] Spiritual counseling [] Bereavement support [] Provided bereavement packet [] Provided Bible/devotional materials [] Provided toy/stuffed animal, coloring book to patient or family member [] Provided Communion [] Anointing/[place] [] Salvation [] Completed spiritual assessment [] Other: Impact on Illness or Injury [] Angry [] Fearful [] Anxious [] Often cries [] Exhaustion [] Unable to work [] Unable to attend mormonism [] Unable to walk/stand [] Unable to read [] Unable to drive [] Unable to eat/drink [] Unable to sleep [] Unable to be with family [] Patient intubated [] Other: Summary Time spent with patient
--- NOTE | 2024-04-18 09:34 | XR_ITS ---
WS: [id number] Examination: XR hip BI 3-4V wo/w pel [id number] Reason for Exam: AVN Date: 04/18/2024 Comparison: None. Findings: There is some flattening of the right femoral head with sclerosis and cyst formation from avascular n ecrosis. There is resultant degenerative changes of the right hip. Acetabular and femoral head osteop hytes are present. There is no dislocation On the left. The bone density is maintained. There is no destruction. There is no fracture or disloca tion. Mild degenerative changes are present. There is no evidence of left-sided avascular necrosis XR/XR hip BI 3-4V wo/w pel [id number] Impression: There is right hip avascular necrosis with resultant degenerative changes.
--- NOTE | 2024-04-18 10:28 | PM.PN ---
Subjective Subjective: Patient is stating that she is struggling to get up having limited range of motion of legs Creatinine improving Hemodynamically stable Vitals/I&O/Wt Last Vital Signs Temp 98.1 F 04/18/24 08:25 Pulse 48 L 04/18/24 08:25 Resp 16 04/18/24 08:25 BP 103/54 04/18/24 08:25 Pulse Ox 92 04/18/24 08:25 O2 Del Method Room Air 04/18/24 08:25 04/17/24 04/18/24 04/18/24 22:59 06:59 14:59 Intake Total 1097.667 / 2611.259 1703.233 / 2600.300 544.833 / 544.833 Output Total 1050 / 1050 150 / 1200 Balance 47.667 / 518.067 882.233 / 1400.300 544.833 / 544.833 Weight last 48 hrs Weight 90.492 kg Weight 85.638 kg Weight 104.326 kg Physical Exam Narrative: Awake and alert No sign of stroke Lethargic and fatigued Signs of dehydration improving Limited range of motion right hip area S1, S2 Currently on room air Hemodynamically stable Left foot cellulitis without any worsening Urinary Catheter Management: Vaca: Cath Placed During This Visit: yes Reason for Continuing Indwelling Catheter: Other Urinary Catheter Date of Insertion: 04/17/24 Urinary Catheter Time of Insertion: 03:33 Data 04/18/24 01:45 04/18/24 01:45 Micro: Microbiology 04/16/24 23:29 Urine Culture - Preliminary Urine,Clean Catch Gram Negative Rods 04/17/24 04:50 Blood Culture - Preliminary Blood NEGATIVE TO DATE 04/16/24 22:30 Blood Culture - Preliminary Blood A&P Assessment and plan (1) Acute kidney injury: (2) Urinary tract infection: Qualifiers: Hematuria presence: with hematuria Urinary tract infection type: acute cystitis Qualified Code(s): N30.01 - Acute cystitis with hematuria (3) Kidney transplant status: (4) Cellulitis: Qualifiers: Laterality: left Site of cellulitis: extremity Site of cellulitis of extremity: lower extremity Qualified Code(s): L03.116 - Cellulitis of left lower limb Plan Urinary tract infection Changed antibiotics Afebrile YOMI: Proved with IV fluid hydration Continue bicarb tablets Nonpurulent cellulitis Antibiotics changed to ceftriaxone and doxycycline Provoked DVT patient most likely will go home on Eliquis Avascular necrosis of hip Orthopedic service consulted Dr. Florez will evaluate Disposition: Home health versus group home as per PT Full code Continue Depakote for seizures Attestations Medical Necessity Statement*: Anticipating discharge in next 24 hours Diagnoses Acute kidney injury N17.9 Urinary tract infection N30.01 Hematuria presence: with hematuria Urinary tract infection type: acute cystitis Kidney transplant status Z94.0 Cellulitis L03.116 Laterality: left Site of cellulitis: extremity Site of cellulitis of extremity: lower extremity
[2024-04-18] MEDS: cefTRIAXone 1,000 mg SDV 1000 MG IVP (12:00)
[2024-04-18 14:55] LABS: Partial Thromboplastin Time 55.5 SECONDS (23.9-36.7)
--- NOTE | 2024-04-18 15:12 | P.CONIM_ITS ---
Providers/Reason For Consult 2 Consulting Physician/Specialty*: Alirio Florez DO/orthopedic surgery Reason for Consult*: Right hip avascular necrosis with degenerative hip disease Attending Physician: Carmen Smith MD Primary Care Provider: Sari Dover History of Present Illness History of Present Illness Brionna Ornelas is a 48 year old female who presented and was admitted to the hospital per the hospitalist team on 04/17/2024. Patient has a complex medical history as stated in primaries HPI of initial H&P note as listed below: past medical history of renal transplant in 2016, [facility], on mycophenolate, and tacrolimus and prednisone, history of seizures, who presents to [facility] due to fatigue, malaise, weakness in both legs, left leg pain Patient was admitted for urinary tract infection left lower extremity swelling concerning for possible cellulitis as well as history of renal transplant and acute kidney injury. During patient's workup a CT scan was performed and patient was found to have right hip avascular necrosis as result the orthopedic surgery team was consulted for evaluation and treatment recommendations. At this point in time on my evaluation and discussion with patient she denies any hip pain and is benign on examination however she does have some limits on range of motion but she states most of her pain is her left lower extremity as well as her right knee and bilateral feet. No fevers or chills at this time. Medications/Allergies Home Medications Medication Instructions Recorded Confirmed Last Taken Type mycophenolate sodium 360 mg 360 mg PO BID 08/28/19 04/17/24 03/10/20 History tablet,delayed release (Myfortic) prednisone 5 mg tablet 5 mg PO DAILY 08/28/19 04/17/24 03/10/20 History sodium bicarbonate 650 mg tablet 650 mg PO BID 08/28/19 04/17/24 03/10/20 History furosemide 40 mg tablet (Lasix) 40 mg PO DAILY #4 tabs 08/22/22 04/17/24 Unknown Rx divalproex 250 mg tablet,delayed See Rx Instructions .Route 09/14/23 04/17/24 Unknown Rx release .COMPLEX #540 tabs sodium di- and 250 tab PO TID 04/17/24 04/17/24 Unknown History monophosphate-potassium phos monobasic 250 mg tablet (Phospha Neutral) sulfamethoxazole 400 1 tab PO BID 7 days #14 tabs 04/17/24 Unknown Rx mg-trimethoprim 80 mg tablet (Bactrim) tacrolimus 1 mg capsule, 1 mg PO Q12H 04/17/24 04/17/24 Unknown History immediate-release (Prograf) Allergies Allergy/AdvReac Type Severity Reaction Status Date / Time meperidine [From Demerol] Allergy ALGY-Rash Verified 04/16/24 22:06 phenobarbital Allergy ALGY-Rash Verified 04/16/24 22:06 Current Medications Generic Name Dose Route Start Last Admin Trade Name Freq PRN Reason Stop Dose Admin Hydrocodone Bitart/Acetaminophen 1 tab 04/17/24 12:01 04/18/24 08:11 Hydrocodone-Acetaminophen 5-325 Mg Tablet PO 1 tab Q4H PRN Administration MODERATE PAIN Ceftriaxone Sodium 1,000 mg 04/17/24 10:00 04/18/24 12:00 Ceftriaxone 1,000 Mg Sdv IVP 1,000 mg Q24H KAM Administration Protocol Divalproex Sodium 250 mg 04/17/24 18:00 04/18/24 08:[address] 250 Mg Tablet PO 250 mg BID KAM Administration Doxycycline Monohydrate 100 mg 04/17/24 18:00 04/18/24 08:05 Doxycycline 100 Mg Tablet PO 100 mg BID KAM Administration Protocol Sodium Chloride 1,000 mls @ 75 mls/hr 04/17/24 02:47 04/18/24 04:48 Sodium Chloride 0.9% IV 75 mls/hr .[id number] KAM Administration Heparin Sodium/Sodium Chloride 25,000 unit in 500 mls @ 0 mls/hr 04/17/24 04:30 04/18/24 15:05 Heparin Drip IV 8.17 unit/kg/hr CONT KAM 14 mls/hr Titration Protocol Per Protocol Vancomycin HCl 1,250 mg in 250 mls @ 166.667 mls/hr 04/18/24 07:45 04/18/24 09:28 Vancocin IV Infused Q24H KAM Infusion Levothyroxine Sodium 75 mcg 04/17/24 10:00 04/18/24 05:00 Levothyroxine 150 Mcg Tablet PO 75 mcg QAM KAM Administration Morphine Sulfate 2 mg 04/17/24 01:30 04/17/24 07:49 Morphine 4 Mg/Ml Sdv 1 Ml IVP 2 mg Q4H PRN Administration SEVERE PAIN Pantoprazole Sodium 40 mg 04/17/24 01:30 04/18/24 04:52 Pantoprazole 40 Mg Sdv IVP 40 mg Q24H KAM Administration Prednisone 5 mg 04/17/24 09:00 04/18/24 08:05 Prednisone 5 Mg Tablet PO 5 mg DAILY KAM Administration Sodium Bicarbonate 650 mg 04/17/24 18:00 04/18/24 08:05 Sodium Bicarbonate 650 Mg Tablet PO 650 mg BID KAM Administration PFSH Acute 2 PFSH: Medical History Falls Locking of left knee Hypothyroidism Seizures Hypertension Surgical History Kidney transplant status Social History Smoking and tobacco/nicotine status: never used tobacco/nicotine Alcohol intake: never Substance/Drug Use: never Vitals/I&O/Wt Last Vital Signs Temp 98 F 04/18/24 11:58 Pulse 62 04/18/24 14:00 Resp 18 04/18/24 11:58 BP 107/73 04/18/24 11:58 Pulse Ox 93 04/18/24 11:58 O2 Del Method Room Air 04/18/24 11:58 04/18/24 04/18/24 04/18/24 06:59 14:59 22:59 Intake Total 1032.233 / 2600.300 1024.833 / 1024.833 88.433 / 1113.266 Output Total 150 / 1200 Balance 882.233 / 4203.712 0360.833 / 1024.833 88.433 / 1113.266 Weight last 48 hrs Weight 199 lb 8 oz Weight 188 lb 12.8 oz Weight 230 lb Physical Exam 2 Narrative: Examination of the right hip. Patient has no tenderness to palpation about the anterior groin of the hip or lateral aspect of hip she is able to tolerate hip flexion internal rotation she does have limited internal and external rotation. She has negative logroll examination she able to perform straight leg raise. She does have some mild tenderness palpation about the right knee with diffuse tenderness to palpation stable with varus valgus stress. Right lower extremity patient is able to wiggle toes plantarflex and dorsiflex ankle sensations intact to light touch distally. Distal pulses palpable Secondary survey examination yields patient has some small black eschars over the dorsum of the foot which she states were from bug bites and subsequent erythema throughout the dorsum of the foot and distal aspect of the lower leg. There is no subcutaneous bullae or emphysema appreciated. No signs of a rapid progressing infection. Patient's compartments are soft and compressible. She is able to plantarflex and dorsiflex ankle as well as wiggle toes and dorsal sensations intact light touch distally. She has slightly tender over the erythematous area of the left lower extremity findings are consistent with cellulitis there is no appreciable palpable fluctuance or abscess is appreciated throughout the foot or left lower extremity. Negative logroll examination left lower extremity rest of the examination to the bilateral upper extremities is unremarkable with no tenderness palpation of bilateral upper extremity joints and can actively these joints with no pain or discomfort. Urinary Catheter Management: Vaca: Cath Placed During This Visit: yes Reason for Continuing Indwelling Catheter: Other Urinary Catheter Date of Insertion: 04/17/24 Urinary Catheter Time of Insertion: 03:33 Data 04/18/24 01:45 04/18/24 01:45 Micro: Microbiology 04/16/24 23:29 Urine Culture - Preliminary Urine,Clean Catch Gram Negative Rods 04/17/24 04:50 Blood Culture - Preliminary Blood NEGATIVE TO DATE 04/16/24 22:30 Blood Culture - Preliminary Blood Xray Ortho: Radiologist's impression: Ordering Provider/Ordering MD: Carmen Smith MD Date of Service: 04/18/24 Procedure(s): XR hip BI 3-4V wo/w pel [id number] Accession Number(s): [id number] Report Number: [id number] WS: [id number] Examination: XR hip BI 3-4V wo/w pel [id number] Reason for Exam: AVN Date: 04/18/2024 Comparison: None. Findings: There is some flattening of the right femoral head with sclerosis and cyst formation from avascular necrosis. There is resultant degenerative changes of the right hip. Acetabular and femoral head osteophytes are present. There is no dislocation On the left. The bone density is maintained. There is no destruction. There is no fracture or dislocation. Mild degenerative changes are present. There is no evidence of left-sided avascular necrosis XR/XR hip BI 3-4V wo/w pel [id number] Impression: There is right hip avascular necrosis with resultant degenerative changes. CT/CT lower leg LT wo con* [id number] IMPRESSION: There is soft tissue swelling over the anterior aspect of the ankle and forefoot without soft tissue gas or radiopaque foreign body. No destructive bony lesions or acute fracture. CT/CT foot LT wo con* [id number] IMPRESSION: No acute LEFT foot findings CT/CT abdomen pelvis wo con [id number] IMPRESSION: 1. No acute abnormality of the severely atrophic [place] kidneys or left iliac fossa transplant kidney. In particular, there is no evidence urolithiasis. No peritransplant fluid collection or edema. 2. 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 On today's exam, there is evidence of flattening of the right femoral head with advanced secondary osteoarthritis. Consider MR of the left hip in order to detect AVN in its early and more treatable stage. A&P Assessment and plan (1) Avascular necrosis of bone of right hip: (2) Cellulitis: Qualifiers: Laterality: left Site of cellulitis: extremity Site of cellulitis of extremity: lower extremity Qualified Code(s): L03.116 - Cellulitis of left lower limb (3) Kidney transplant status: Plan May weight-bear as tolerated to the right lower extremity Imaging reviewed PT/OT Will order right knee x-rays just that she has some tenderness to palpation if these are negative continue with current plan No acute orthopedic surgical intervention required at this time Follow-up in orthopedics within 2 to 4 weeks upon discharge for outpatient workup and follow-up Continue with IV antibiotics for cellulitis left lower extremity per primary Labs reviewed Orthopedic surgery team will sign off at this patient follow peripherally. If there is any question pertaining patient care or change in patient's clinical presentation feel free to contact orthopedics on-call otherwise patient can follow-up with us on an outpatient setting for workup of her right hip AVN. MDM: Patient 48-year-old female presented with a complex past medical history she was found on her workup as she has a renal transplant acute kidney injury, left lower extremity cellulitis as well as findings now of a DVT which she is currently being treated for by the hospitalist with a heparin drip. At this point time on her workup a CT scan identified right hip AVN and as a result orthopedics was asked to evaluate patient. On my examination she does not have much in the way of pain of the right hip and does not complain of pain in the right hip however she does have some limits on her range of motion and on x-rays of it does show right hip degenerative joint disease and AVN changes. At this point in time there is no need for any acute orthopedic surgical intervention required at this time and this can be followed peripherally particularly given that patient is currently has a blood clot as well as left lower extremity cellulitis. At this point time would recommend outpatient follow-up for her right hip AVN in 2 to 4 weeks. She understands and agrees with current plan. All questions answered. Coding Level of Care Code Acute Code for Chg Fwd Diagnoses Avascular necrosis of bone of right hip M87.051 Cellulitis L03.116 Laterality: left Site of cellulitis: extremity Site of cellulitis of extremity: lower extremity Kidney transplant status Z94.0 Time Spent (min) 45
--- NOTE | 2024-04-18 16:46 | XRR_ITS ---
PROCEDURE INFORMATION: Exam: XR Right Knee Exam date and time: 04/18/2024 4:59 PM Age: 48 years old Clinical indication: Difficulty in walking; Additional info: Right knee pain TECHNIQUE: Imaging protocol: Radiologic exam of the right knee. Views: 1 or 2 views. COMPARISON: No relevant prior studies available. FINDINGS: Bones/joints: No acute fractures or subluxations. Mild degenerative changes with joint space narrowing. No knee joint effusion. Soft tissues: Soft tissues are unremarkable. Vasculature: Atherosclerotic calcifications. XR/XR knee RT 1-2V [id number] IMPRESSION: No acute fractures or subluxations.
[2024-04-18 21:42] LABS: Partial Thromboplastin Time 58.2 SECONDS (23.9-36.7)
--- NOTE | 2024-04-18 23:56 | ECG_ITS ---
[facility] Test Date: 2024-04-18 Pat Name: Brionna Ornelas Department: Room: 264 Gender: Female Community Director: : 1975 Requested By: Bull Ascencio Order Number: [id number] Gamal MD: Nils Parra M.D. Measurements Intervals Ferney Rate: 86 P: 151 HI: 189 QRS: -33 QRSD: 126 T: -5 QT: 318 QTc: 382 Interpretive Statements SINUS RHYTHM WITH FREQUENT SUPRAVENTRICULAR PREMATURE COMPLEXES LEFT AXIS DEVIATION [QRS AXIS < -30] RIGHT BUNDLE BRANCH BLOCK [120+ ms QRS DURATION, UPRIGHT V1, 40+ ms S IN I/aVL/V4/V5/V6] POSSIBLE ANTERIOR MYOCARDIAL INFARCTION , PROBABLY OLD [30 ms Q WAVE IN V3/V4, OR R < 0.2 mV IN V4] Compared to ECG 03/10/2020 15:38:24 Left-axis deviation now present Right bundle-branch block now present Left ventricular hypertrophy no longer present ST (T wave) deviation no longer present Myocardial infarct finding still present Electronically Signed On 04-19-2024 14:56:41 CDT by Nils Parra M.D. [id number]
[2024-04-19] VITALS (7 sets, daily range): BP systolic 101–123; BP diastolic 60–75; PULSE 50–99; RESP 16–20; TEMP 36.3–37.1; O2SAT 91–95
--- NOTE | 2024-04-19 | PC.NURSE ---
Dr. Ascencio notified that patient is having intermittent, frequent beats that appear to either be PVCs or a runs of A-fib.. Image of tele strips sent to him via voalte. EKG taken per order and image of it sent to him via voalte.
[2024-04-19 03:19] LABS: Basophils % 0.7 %; Eosinophils # 0.1 10^3/uL (0.0-0.8); Eosinophils % 1.2 %; Hematocrit 34.2 % (36-47); Lymphocytes # 1.5 10^3/uL (0.8-4.8); Lymphocytes % 24.8 %; Mean Corpuscular HGB Conc 29.8 g/dL (30-55); Mean Corpuscular Hemoglobin 32.6 pg (27-33); Mean Corpuscular Volume 109.3 fl (85-98); Mean Platelet Volume 10.8 fL (7.4-10.4); Monocytes # 0.6 10^3/uL (0.2-0.9); Monocytes % 9.3 %; Neutrophils # 3.69 10^3/uL (1.8-7.7); Neutrophils % 62.6 %; Nucleated Red Blood Cells % 0 %; Platelet Count 222 10^3/cmm (157-399); Red Blood Count 3.13 10^6/uL (3.85-5.65); White Blood Count 5.89 10^3/uL (3.29-11.43)
[2024-04-19 03:32] LABS: Partial Thromboplastin Time 64.3 SECONDS (23.9-36.7)
[2024-04-19 03:36] LABS: Anion Gap 14.4 (5-19); Blood Urea Nitrogen 23 mg/dL (6-20); Calcium 8.9 mg/dL (8.5-10.5); Carbon Dioxide 19 mmol/L (22-29); Chloride 113 mmol/L (98-107); Creatinine Clr Calc Pharmacy 74.7966; Glomerular Filtration Rate 58.7 mL/min (90-130); Glucose 107 mg/dL (65-115); Osmolality Calculated 298 mOsm/kg (285-295); Potassium 4.4 mmol/L (3.5-5.1); Sodium 142 mmol/L (136-145)
[2024-04-19] MEDS: levothyroxine 150 mcg Tablet 75 MCG PO (04:46)
--- NOTE | 2024-04-19 06:56 | PC.NURSE ---
Dr. Smith notified that the patient hasn't had her anti-rejection medication for her kidney transplant in a few days.
[2024-04-19] MEDS: doxycycline 100 mg Tablet PO ×2 (09:08→17:55)
[2024-04-19] MEDS: sodium bicarbonate 650 mg Tablet PO ×2 (09:08→17:55)
[2024-04-19] MEDS: predniSONE 5 mg Tablet PO (09:09)
[2024-04-19] MEDS: divalproex DR 250 mg Tablet PO (09:09)
[2024-04-19] MEDS: tacrolimus 0.5 mg Capsule 1 MG PO ×2 (09:10→21:39)
[2024-04-19] MEDS: pantoprazole 40 mg SDV IVP (09:12)
[2024-04-19] MEDS: sodium chloride 0.9% 1,000 ML 75 ML IV (09:19)
[2024-04-19] MEDS: vancomycin 1,250 MG/250 ML PIGGYBACK 167 MG IV (09:24)
--- NOTE | 2024-04-19 09:40 | P.PN_ITS ---
Subjective 2 Subjective: Patient seems very withdrawn Showing signs of depression Endorsing pain on her attempted get out of bed She is agreeable for Vaca catheter mobile today She is also agreeable to go to SNF as short-term rehab Vitals/I&O/Wt Last Vital Signs Temp 98 F 04/19/24 07:12 Pulse 54 L 04/19/24 07:12 Resp 18 04/19/24 07:12 BP 101/65 04/19/24 07:12 Pulse Ox 94 04/19/24 07:12 O2 Del Method Room Air 04/19/24 07:12 04/18/24 04/19/24 04/19/24 22:59 06:59 14:59 Intake Total 1869.233 / 2894.066 86.8 / 2980.866 1240 / 1240 Output Total 1600 / 1600 350 / 1950 Balance 269.233 / 1294.066 -263.2 / 1841.485 0228 / 1240 Weight last 48 hrs Weight 93.531 kg Weight 90.492 kg Physical Exam 2 Narrative: Awake and alert Laying supine Black eschar left foot area with signs of healing I do not see worsening of erythema no active drainage Pleasant cooperative nonfocal neuroexam GCS 15 S1, S2 bradycardia Currently on room air Urinary Catheter Management: Vaca: Cath Placed During This Visit: yes Reason for Continuing Indwelling Catheter: Accurate Measurement of Urinary Output in Critically Ill Patients Urinary Catheter Date of Insertion: 04/17/24 Urinary Catheter Time of Insertion: 03:33 Data 04/19/24 03:09 04/19/24 03:09 Micro: Microbiology 04/16/24 23:29 Urine Culture - Preliminary Urine,Clean Catch Gram Negative Rods 04/17/24 04:50 Blood Culture - Preliminary Blood NEGATIVE TO DATE A&P Assessment and plan (1) Acute kidney injury: (2) Urinary tract infection: Qualifiers: Hematuria presence: with hematuria Urinary tract infection type: acute cystitis Qualified Code(s): N30.01 - Acute cystitis with hematuria (3) Kidney transplant status: (4) Cellulitis: Qualifiers: Laterality: left Site of cellulitis: extremity Site of cellulitis of extremity: lower extremity Qualified Code(s): L03.116 - Cellulitis of left lower limb Plan Nonpurulent cellulitis Antibiotics changed to ceftriaxone and doxycycline Provoked DVT patient Patient has bleeding secondary lifestyle I will switch her heparin drip to Eliquis 10 mg twice daily for 7 days then 5 mg twice daily YOMI: History of renal transplant, I will resume her immunosuppressants today creatinine has improved Continue bicarb tablets Avascular necrosis of hip Patient will need outpatient valuation appreciate orthopedic recommendations Disposition: Patient is asking for short-term rehab placement because she were not able to care for self, she lives alone Full code Continue Depakote for seizures Signs of depression: Will add low-dose escitalopram Attestations 2 Medical Necessity Statement*: Seeking placement Diagnoses Acute kidney injury N17.9 Urinary tract infection N30.01 Hematuria presence: with hematuria Urinary tract infection type: acute cystitis Kidney transplant status Z94.0 Cellulitis L03.116 Laterality: left Site of cellulitis: extremity Site of cellulitis of extremity: lower extremity
--- NOTE | 2024-04-19 10:01 | PC.CHAP ---
Pastoral Care Encounter/Spiritual Assessment Type of Contact [] Declined telephone sales agent visit [] Patient/Family/Request visit [] Outpatient visit [] Follow-up visit [] Physician referral [] Code/Alert [x] Routine visit [] Staff referral [] Actively dying [] Patient sleeping [] Family support [] [] Out of room [] Palliative care [] [] Receiving care in room [] Pre-surgical visit [] Trauma [] Long length of stay [] ICU visit [] Other: Relational/Emotional Strength [x] Patient feels connected with others/family/visitors/staff [] Distress [] Loneliness/isolation [] Abandonment Spirituality of Patient [x] Person of Izabela [] Attends Temple of their Izabela [x] Believes in Prayer [] Reads Bible or Confucianism materials [] There are Spiritual issues to be addressed Industrial Service Technician Interventions [x] Prayer [x] Active listening [] Non-anxious presence [x] Spiritual/emotional support [] Crisis/trauma care [] Spiritual counseling [] Bereavement support [] Provided bereavement packet [] Provided Bible/devotional materials [] Provided toy/stuffed animal, coloring book to patient or family member [] Provided Communion [] Anointing/[place] [] Salvation [x] Completed spiritual assessment [] Other: Impact on Illness or Injury [] Angry [] Fearful [] Anxious [] Often cries [] Exhaustion [] Unable to work [] Unable to attend sabianism [] Unable to walk/stand [] Unable to read [] Unable to drive [] Unable to eat/drink [] Unable to sleep [] Unable to be with family [] Patient intubated [] Other: Summary Time spent with patient 5 min
[2024-04-19 10:22] LABS: Partial Thromboplastin Time 57.8 SECONDS (23.9-36.7)
[2024-04-19] MEDS: escitalopram 10 mg Tablet PO (10:51)
[2024-04-19] MEDS: FUROsemide 10 mg/mL SDV 2mL 20 MG IVP (10:51)
[2024-04-19] MEDS: cefTRIAXone 1,000 mg SDV 1000 MG IVP (12:00)
--- NOTE | 2024-04-19 13:24 | ECG_ITS ---
[facility] Test Date: 2024-04-19 Pat Name: Brionna Ornelas Department: Room: 264 Gender: Female Lab Rep: : [id number] Requested By: Carmen Smith Order Number: [id number] MD: Nils Parra M.D. Measurements Intervals [place] Rate: 78 P: 147 AL: 185 QRS: 214 QRSD: 142 T: 181 QT: 395 QTc: 452 Interpretive Statements SINUS RHYTHM WITH FREQUENT SUPRAVENTRICULAR PREMATURE COMPLEXES ARM LEADS REVERSED [INVERTED P AND QRS IN I] Compared to ECG 04/18/2024 23:56:25 Left-axis deviation no longer present Right bundle-branch block no longer present Myocardial infarct finding no longer present Electronically Signed On 04-19-2024 14:42:16 CDT by Nils Parra M.D. [email or web address] medical groupDreamHostdelaware [facility] hospital.[facility]/store/NU/[id number] f
[2024-04-19] MEDS: divalproex DR 250 mg Tablet 750 MG PO (17:54)
[2024-04-19] MEDS: apixaban 5 mg Tablet 10 MG PO (21:39)
[2024-04-19] MEDS: HYDROcodone-acetaminophen 5-325 mg Tablet 1 TAB PO (21:46)
[2024-04-20] VITALS: BP 134/76; PULSE 56; RESP 16; TEMP 36.6; O2SAT 95
--- NOTE | 2024-04-20 01:54 | PC.NURSE ---
NS and Heparin drip were not running upon my arrival on shift.
[2024-04-20 04:00] VITALS: BP 118/66; PULSE 42; RESP 20; TEMP 36.7; O2SAT 94
[2024-04-20] MEDS: levothyroxine 150 mcg Tablet 75 MCG PO (04:50)
[2024-04-20 05:03] LABS: Basophils % 0.6 %; Eosinophils # 0.1 10^3/uL (0.0-0.8); Eosinophils % 1.6 %; Lymphocytes # 1.8 10^3/uL (0.8-4.8); Lymphocytes % 28.1 %; Mean Corpuscular HGB Conc 31.2 g/dL (30-55); Mean Corpuscular Hemoglobin 32.7 pg (27-33); Mean Corpuscular Volume 104.8 fl (85-98); Mean Platelet Volume 10.7 fL (7.4-10.4); Monocytes # 0.6 10^3/uL (0.2-0.9); Monocytes % 9.8 %; Neutrophils # 3.75 10^3/uL (1.8-7.7); Neutrophils % 58.5 %; Nucleated Red Blood Cells % 0.3 %; Platelet Count 244 10^3/cmm (157-399); Red Blood Count 3.15 10^6/uL (3.85-5.65); Red Cell Distribution Width 14.2 % (12.1-15.1); White Blood Count 6.41 10^3/uL (3.29-11.43)
[2024-04-20 05:21] LABS: Anion Gap 13.9 (5-19); Blood Urea Nitrogen 23 mg/dL (6-20); Calcium 9.4 mg/dL (8.5-10.5); Carbon Dioxide 23 mmol/L (22-29); Chloride 107 mmol/L (98-107); Creatinine Clr Calc Pharmacy 69.3113; Glomerular Filtration Rate 52.6 mL/min (90-130); Glucose 104 mg/dL (65-115); Osmolality Calculated 294 mOsm/kg (285-295); Potassium 3.9 mmol/L (3.5-5.1); Sodium 140 mmol/L (136-145)
[2024-04-20 05:38] LABS: Slide Review Slide Review Perform
[2024-04-20 06:00] VITALS: PULSE 56
[2024-04-20] MEDS: HYDROcodone-acetaminophen 5-325 mg Tablet 1 TAB PO (06:51)
[2024-04-20 07:34] VITALS: BP 104/70; PULSE 71; RESP 17; TEMP 36.4; O2SAT 95
--- NOTE | 2024-04-20 09:02 | PC.SOCIAL ---
IMM Updated Updated pt on IMM. No questions voiced. Provided pt a copy. Initialed, dated, & timed a copy & placed in chart.
[2024-04-20] MEDS: divalproex DR 250 mg Tablet 750 MG PO (09:15)
[2024-04-20] MEDS: escitalopram 10 mg Tablet PO (09:16)
[2024-04-20] MEDS: vancomycin 1,250 MG/250 ML PIGGYBACK 167 MG IV (09:16)
[2024-04-20] MEDS: sodium bicarbonate 650 mg Tablet PO (09:16)
[2024-04-20] MEDS: tacrolimus 0.5 mg Capsule 1 MG PO (09:16)
[2024-04-20] MEDS: doxycycline 100 mg Tablet PO (09:16)
[2024-04-20] MEDS: predniSONE 5 mg Tablet PO (09:16)
[2024-04-20] MEDS: pantoprazole 40 mg SDV IVP (09:16)
[2024-04-20] MEDS: apixaban 5 mg Tablet 10 MG PO (09:22)
[2024-04-20 11:09] VITALS: BP 108/57; PULSE 78; RESP 17; TEMP 36.3; O2SAT 95
[2024-04-20] MEDS: cefTRIAXone 1,000 mg SDV 1000 MG IVP (11:15)
--- NOTE | 2024-04-20 11:29 | P.DS_ITS ---
Discharge Providers Date of Admission: 04/17/24 00:43 Date of Discharge: April 20, 2024 Attending Provider at Admission: Bull Ascencio MD Attending Provider at Discharge: Joselin Delarosa MD Primary Care Provider: Sari Dover Diagnoses at Discharge Discharge Diagnosis (1) Acute kidney injury: Status: Resolved (2) Urinary tract infection: Status: Acute Qualifiers: Hematuria presence: with hematuria Urinary tract infection type: acute cystitis Qualified Code(s): N30.01 - Acute cystitis with hematuria (3) Kidney transplant status: Status: Acute (4) Cellulitis: Status: Acute Qualifiers: Laterality: left Site of cellulitis: extremity Site of cellulitis of extremity: lower extremity Qualified Code(s): L03.116 - Cellulitis of left lower limb Reason for Visit Reason for Visit: swollen foot Hospital Course Hospital Course Patient was admitted for UTI and cellulitis of lower extremity. She was treated for the above and required short-term rehab at time of discharge. She was diagnosed with avascular necrosis of the hip and advised to follow-up outpatient with orthopedics. Because of a provoked DVT she was started on Eliquis. Discharged on cefpodoxime and doxycycline. Initially the plan was to send her on Bactrim however it was switched to cefpodoxime same and doxycycline at discharge. Low-dose citalopram was also added. Physical Exam Narrative: Awake and alert Laying supine Black eschar left foot area with signs of healing I do not see worsening of erythema no active drainage Pleasant cooperative nonfocal neuroexam GCS 15 S1, S2 bradycardia Currently on room air Urinary Catheter Management: Vaca: Cath Placed During This Visit: yes Reason for Continuing Indwelling Catheter: Other Urinary Catheter Date of Insertion: 04/17/24 Urinary Catheter Time of Insertion: 03:33 Discharge Data Studies Completed and Pending Completed Studies During Hospitalization Category Date Time Status CT abdomen pelvis wo con [id number] Stat Cat Scan 04/17/24 00:[address] foot LT wo con* [id number] Routine Cat Scan 04/17/24 00:[address] lower leg LT wo con* [id number] Stat Cat Scan 04/17/24 00:54 Completed XR hip BI 3-4V wo/w pel [id number] Routine Exams 04/18/24 09:34 Completed XR knee RT 1-2V [id number] Routine Exams 04/18/24 16:46 [place] [id number] Stat Ultrasound 04/17/24 01:17 Completed Pending at discharge Category Date Time Status Blood Culture Stat Lab 04/17/24 04:50 Results FK 506 (Tacrolimus) Routine Lab 04/17/24 04:50 Received Vancomycin Trough Routine Lab 04/21/24 06:45 Ordered Radiology Impressions Abdomen/Pelvis CT 04/17/24 00:54 IMPRESSION: 1. No acute abnormality of the severely atrophic [place] kidneys or left iliac fossa transplant kidney. In particular, there is no evidence urolithiasis. No peritransplant fluid collection or edema. 2. 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 On today's exam, there is evidence of flattening of the right femoral head with advanced secondary osteoarthritis. Consider MR of the left hip in order to detect AVN in its early and more treatable stage. Foot CT 04/17/24 00:54 IMPRESSION: No acute LEFT foot findings Lower Extremity CT 04/17/24 00:54 IMPRESSION: There is soft tissue swelling over the anterior aspect of the ankle and forefoot without soft tissue gas or radiopaque foreign body. No destructive bony lesions or acute fracture. Venous Duplex 04/17/24 01:17 IMPRESSION: Noncompressible peroneal veins are compatible with acute deep venous thrombosis. No additional thrombus demonstrated. In particular, no evidence of DVT in the thigh. Hip/Pelvis X-Ray 04/18/24 09:34 Impression: There is right hip avascular necrosis with resultant degenerative changes. Knee X-Ray 04/18/24 16:46 IMPRESSION: No acute fractures or subluxations. Laboratory Results WBC 6.41 10^3/uL (3.29-11.43) 04/20/24 04:08 RBC 3.15 10^6/uL (3.85-5.65) L 04/20/24 04:08 Hgb 10.30 g/dL (11.27-16.99) L 04/20/24 04:08 Hct 33.0 % (36-47) L 04/20/24 04:08 MCV 104.8 fl (85-98) H 04/20/24 04:08 MCH 32.7 pg (27-33) 04/20/24 04:08 MCHC 31.2 g/dL (30-55) 04/20/24 04:08 RDW 14.2 % (12.1-15.1) 04/20/24 04:08 Plt Count 244 10^3/cmm (157-399) 04/20/24 04:08 MPV 10.7 fL (7.4-10.4) H 04/20/24 04:08 Neut % (Auto) 58.5 % 04/20/24 04:08 Lymph % (Auto) 28.1 % 04/20/24 04:08 Cameron % (Auto) 9.8 % 04/20/24 04:08 Eos % (Auto) 1.6 % 04/20/24 04:08 Baso % (Auto) 0.6 % 04/20/24 04:08 Neut # (Auto) 3.75 10^3/uL (1.8-7.7) 04/20/24 04:08 Lymph # (Auto) 1.8 10^3/uL (0.8-4.8) 04/20/24 04:08 Cameron # (Auto) 0.6 10^3/uL (0.2-0.9) 04/20/24 04:08 Eos # (Auto) 0.1 10^3/uL (0.0-0.8) 04/20/24 04:08 Baso # (Auto) 0.0 10^3/uL (0.0-0.1) 04/20/24 04:08 Nucleated RBC % (auto) 0.3 % 04/20/24 04:08 Nucleated RBCs # 0.0 /100WBC 04/20/24 04:08 ESR 46 mm/hr (0-15) H 04/17/24 04:50 PT 15.80 SECONDS (12.1-14.9) H 04/17/24 04:50 PT Cancelled 04/17/24 04:50 INR 1.22 (0.8-1.2) H 04/17/24 04:50 INR Cancelled 04/17/24 04:50 APTT 57.8 SECONDS (23.9-36.7) H 04/19/24 10:00 Sodium 140 mmol/L (136-145) 04/20/24 04:08 Potassium 3.9 mmol/L (3.5-5.1) 04/20/24 04:08 Chloride 107 mmol/L (98-107) 04/20/24 04:08 Carbon Dioxide 23 mmol/L (22-29) 04/20/24 04:08 Anion Gap 13.9 (5-19) 04/20/24 04:08 BUN 23 mg/dL (6-20) H 04/20/24 04:08 Creatinine 1.1 mg/dL (0.5-0.9) H 04/20/24 04:08 GFR Calculation 52.6 mL/min (90-130) L 04/20/24 04:08 Glucose 104 mg/dL (65-115) 04/20/24 04:08 Estimat Average Glucose 126 04/17/24 04:50 Hemoglobin A1c 6.0 % (4.0-6.0) 04/17/24 04:50 Calculated Osmolality 294 mOsm/kg (285-295) 04/20/24 04:08 Lactic Acid 1.4 mmol/L (0.5-2.2) 04/16/24 22:30 Calcium 9.4 mg/dL (8.5-10.5) 04/20/24 04:08 Phosphorus 1.9 mg/dL (2.5-4.5) L 04/16/24 22:30 Magnesium 2.2 mg/dL (1.7-2.3) 04/16/24 22:30 Total Bilirubin 0.8 mg/dL (0.15-1.2) 04/16/24 22:30 AST 24 U/L (0-32) 04/16/24 22:30 ALT 14 U/L (0-33) 04/16/24 22:30 Alkaline Phosphatase 66 U/L (35-105) 04/16/24 22:30 C-Reactive Protein 276.7 mg/L (0.0-4.9) H 04/17/24 04:50 NT-Pro-B Natriuret Pep 410 pg/mL (0-125) H 04/16/24 22:30 Total Protein 6.5 g/dL (6.6-8.7) L 04/16/24 22:30 Albumin 3.5 g/dL (3.5-5.2) 04/16/24 22:30 Globulin 3.0 g/dL (1.3-4.6) 04/16/24 22:30 Triglycerides 178 mg/dL (0-150) H 04/17/24 04:50 Cholesterol 148 mg/dL (0-200) 04/17/24 04:50 LDL Cholesterol, Calc 83 mg/dL (50-129) 04/17/24 04:50 HDL Cholesterol 29 mg/dL (60-100) L 04/17/24 04:50 LDL/HDL Ratio 2.86 RATIO (0.00-3.22) 04/17/24 04:50 Cholesterol/HDL Ratio 5.10 mg/dL (0.0-4.40) H 04/17/24 04:50 Procalcitonin 0.79 ng/mL (0-0.5) H 04/16/24 22:30 TSH 3.21 uIU/mL (0.27-4.20) 04/17/24 04:50 Urine Color Dark yellow (Yellow) A 04/16/24 23: Urine Appearance Cloudy (CLEAR) A 04/16/24 23: Urine pH 5.0 (5-7) 04/16/24 23: Ur Specific [place] 1.024 (1.005-1.030) 04/16/24 23: Urine Protein 1+ (Negative) A 04/16/24 23: Urine Glucose (UA) Negative (Normal) 04/16/24 23: Urine Ketones 1+ (Negative) H 04/16/24 23: Urine Blood 3+ (Negative) A 04/16/24 23: Urine Nitrate Positive (Negative) A 04/16/24 23: Urine Bilirubin 1+ (Negative) H 04/16/24 23: Urine Urobilinogen 1.0 mg/dL (Negative) 04/16/24 23:29 Ur Leukocyte Esterase 2+ (Negative) A 04/16/24 23:29 Urine RBC 0-4 /hpf (0-2) H 04/16/24 23:29 Urine WBC 21-50 /hpf (0-5) H 04/16/24 23:29 Ur Squamous Epith Cells 0-4 /hpf (0-5) H 04/16/24 23:29 Amorphous Sediment Not Reportable 04/16/24 23:29 Urine Bacteria 4+ /hpf (NONE) H 04/16/24 23:29 Valproic Acid 3.5 ug/mL (50-100) L 04/16/24 22:30 Tacrolimus (FK 506) Cancelled 04/16/24 22:30 Vitals Last Vital Signs Temp 97.4 F L 04/20/24 11:09 Pulse 78 04/20/24 11:09 Resp 17 04/20/24 11:09 BP 108/57 04/20/24 11:09 Pulse Ox 95 04/20/24 11:09 O2 Del Method Room Air 04/20/24 11:09 Discharge Plan Discharge Patient Disposition: Home Health Service Condition: Stable Prescriptions: New Eliquis 5 mg Tablet See Rx Instructions .ROUTE .COMPLEX Qty: 60 0RF Rx Instructions: 10 mg bid x 7 days then reduce dose to 5 mg bid thereafter levothyroxine 150 mcg Tablet 75 mcg PO QAM Qty: 30 0RF escitalopram oxalate 10 mg Tablet 10 mg PO DAILY Qty: 30 0RF doxycycline monohydrate 100 mg Tablet 100 mg PO BID Qty: 10 0RF cefpodoxime 200 mg tablet 200 mg PO BID Qty: 10 0RF Rx Instructions: must administer with a meal/food Continued prednisone 5 mg tablet 5 mg PO DAILY sodium bicarbonate 650 mg tablet 650 mg PO BID mycophenolate sodium [Myfortic] 360 mg tablet,delayed release (DR/EC) 360 mg PO BID divalproex 250 mg tablet,delayed release (DR/EC) See Rx Instructions .ROUTE .COMPLEX Qty: 540 3RF Dose Instruction: TAKE 3 TABLETS BY MOUTH TWICE A DAY Rx Instructions: TAKE 3 TABLETS BY MOUTH TWICE A DAY furosemide [Lasix] 40 mg tablet 40 mg PO DAILY Qty: 4 0RF Phospha 250 Neutral 250 mg Tablet 250 tab PO TID Prograf 1 mg Capsule 1 mg PO Q12H Discharge Orders: Discharge Order (Routine); Ordered 04/20/24 Ordered By: Joselin Delarosa Other Ambulatory Orders: DME: Walker (Order) Location: None Selected Ordered By: Joselin Delarosa Basic Metabolic Panel (Routine) Timeframe: 3 Days Facility: [facility] - Location: Lab - Main Lab Ordered By: Joselin Delarosa Complete Blood Count w/Auto (Routine) Timeframe: 3 Days Location: Determined by Patient Ordered By: Joselin Delarosa Referrals: [facility] [Outside] [facility] ([facility]) [Outside] Sari Dover FNP [Primary Care Provider] - 04/25/24 10:30 am Alirio Florez DO [Physician] - 05/08/24 10:00 am () Discharge Diet: Regular Discharge Activity: Use walker/crutches as instructed and As per PT/OT instructions Patient Instructions: Doxycycline (By mouth), Levothyroxine (By mouth), Cefpodoxime Proxetil (By mouth), Escitalopram (By mouth), Apixaban (By mouth), Acute Kidney Injury (GEN), Urinary Tract Infection in Women (GEN), Chronic Kidney Disease (ED), Cellulitis (ED), Opioid Safety, Urinary Tract Infection - Women Activity Restrictions/Additional Instructions: Evaluation ER showed you have cellulitis or skin infection of your left lower leg as well as a urinary tract infection. Your kidneys were also not working as good as they have been in the past. Please take all your medicine as directed. Please drink plenty of fluids. Follow-up with your family practice physician within the next 7 days for further evaluation and treatment. If your symptoms worsen please feel free to return to the ER. Orthopedics: Follow-up with orthopedic office in 2 to 4 weeks upon discharge Contact the office for any questions or concerns Pain medication per primary team Ice as needed for pain and swelling Patient may weight-bear as tolerated to the right lower extremity Discharge Attestations Time Spent in Discharge Care*: greater than 30 min Quality Metrics Clinical Quality Measures [ No reported AMI, CVA or VTE this stay] Coding Level of Care Code Acute Code for Chg Fwd Diagnoses Acute kidney injury N17.9 Urinary tract infection N30.01 Hematuria presence: with hematuria Urinary tract infection type: acute cystitis Kidney transplant status Z94.0 Cellulitis L03.116 Laterality: left Site of cellulitis: extremity Site of cellulitis of extremity: lower extremity
== END 2024-04-20 14:29 | disposition home health service (06) | DRG 699 ==
LOC: ER 04-17 00:27 → MEDSURG 04-17 00:44
PROVIDERS: Internal Medicine; Admitting Provider Family Medicine; Emergency Provider Emergency Medicine; PCP Nurse Practitioner Family; Visit Provider Internal Medicine
DX: T86.19 Other complication of kidney transplant (principal); D84.9 Immunodeficiency, unspecified; N30.01 Acute cystitis with hematuria; L03.116 Cellulitis of left lower limb; N17.9 Acute kidney failure, unspecified; I82.452 Acute embolism and thrombosis of left peroneal vein; M87.9 Osteonecrosis, unspecified; I12.9 Hypertensive chronic kidney disease with stage 1 through stage 4 chronic kidney disease, or unspecified chronic kidney disease; N18.9 Chronic kidney disease, unspecified; E86.0 Dehydration; G40.909 Epilepsy, unspecified, not intractable, without status epilepticus; E03.9 Hypothyroidism, unspecified; Y83.0 Surgical operation with transplant of whole organ as the cause of abnormal reaction of the patient, or of later complication, without mention of misadventure at the time of the procedure; F32.A Depression, unspecified
CPT/HCPCS: 36415; 51702; 73522; 73560; 73700; 74176; 80048; 80053; 80061; 80164; 80197; 81003; 81015; 83036; 83605; 83735; 83880; 84100; 84145; 84443; 85025; 85049; 85610; 85651; 85730; 86140; 87040; 87077; 87086; 87150; 87186; 87205; 93005; 93971; 94664; 96365; 96372; 96375; 97110; 97116; 97162; 97167; 97530; 97535; 99285; J0696; J1644; J1940; J2270; J2470; J2543; J3370; J7030; J7507; J7512